=== PATIENT | female | born 1960 | race Caucasian/White ===

== ENCOUNTER → 2016-08-17 | Outpatient (CLI) | payer BC ==
[~2016-08-17] MED LIST: /MOXI40TA OR; ALDA25TA2 OR; ASPI81TA31 OR; LASI20TA OR
[2016-08-17 14:35] LABS: ALBUMIN/GLOBULIN RATIO 0.95 (1.00-1.93); BILIRUBIN,TOTAL 0.4 MG/DL (0.2-1.0); CALCIUM LEVEL 9.3 MG/DL (8.5-10.1); CREATININE FOR GFR 1.02 MG/DL (0.55-1.02); GLOMERULAR FILTRATION RATE 59.3 (>51); MAGNESIUM LEVEL 2.1 MG/DL (1.8-2.4); POTASSIUM SERUM 4.2 MEQ/L (3.5-5.1); TOTAL PROTEIN 8.2 GM/DL (6.4-8.2)
== END ==
LOC: M SMT 09:24
PROVIDERS: ATTEND Physician Assistant
DX: R00.2 Palpitations (principal); Z13.220 Encounter for screening for lipoid disorders

== ENCOUNTER → 2017-02-17 | Outpatient (REF) | payer BC ==
[2017-02-17 15:03] LABS: ANION GAP 7 MEQ/L (8-16); BLOOD UREA NITROGEN 16 MG/DL (7-18); CALCIUM LEVEL 9.2 MG/DL (8.5-10.1); CARBON DIOXIDE LEVEL 29 MEQ/L (21-32); CHLORIDE LEVEL 105 MEQ/L (98-107); CREATININE FOR GFR 0.97 MG/DL (0.55-1.02); GLOMERULAR FILTRATION RATE > 60.0 (>51); GLUCOSE, FASTING 105 MG/DL (70-105); PHOSPHORUS LEVEL 3.6 MG/DL (2.5-4.9); SODIUM LEVEL 141 MEQ/L (136-145)
== END ==
LOC: M LAB REF 13:56
DX: R00.2 Palpitations (principal)
CPT/HCPCS: 80069

== ENCOUNTER → 2018-04-02 | Outpatient (REF) | payer BC | LOC: M LAB REF 11:02 | PROVIDERS: ATTEND Physician Assistant | DX: L02.213 Cutaneous abscess of chest wall (principal) ==

== ENCOUNTER 2018-04-15 11:18 | Emergency (ER) | payer BC ==
[~2018-04-15] VITALS: Ht 160 cm; Wt 73.2 kg
[2018-04-15] MEDS ORDERED: BISO10TA PO (11:28)
--- NOTE | 2018-04-15 14:12 | REP ---
Emergency right breast ultrasound for palpable painful lesion at the 9 o'clock location of the right breast near the sternum, approximate 6.5 cm from the nipple. The palpable painful lump corresponds to a a hypoechoic mass with irregular margins measuring 2.1 by 1.9 x 1.9 cm. With color Doppler assessment there is hyperemia at the margins of this lesion. Impression: The findings are nonspecific and could represent hematoma or abscess. Electronically Signed by Raymundo Card MD 04/15/2018 02:03 P
[2018-04-15 14:20] VITALS: BP 151/68
--- NOTE | 2018-04-16 14:06 | ED PDOC ---
Post-Departure Follow-Up dr sloan faxed formal report of breast us for fu Charlette Padilla MD Apr 16, 2018 14:06
[2018-04-27] MEDS ORDERED: ZYRT10CA PO (13:50)
== END 2018-04-15 14:22 | disposition home or self-care (01) ==
LOC: M ED 11:18
DX: N63.10 Unspecified lump in the right breast, unspecified quadrant (principal); I50.9 Heart failure, unspecified; F41.9 Anxiety disorder, unspecified; Z95.0 Presence of cardiac pacemaker; Z88.0 Allergy status to penicillin; Z88.8 Allergy status to other drugs, medicaments and biological substances; Z79.899 Other long term (current) drug therapy; Z79.82 Long term (current) use of aspirin

== ENCOUNTER → 2018-04-24 | Outpatient (REF) | payer BC ==
[~2018-04-24] MED LIST changes: +BISO10TA PO; +ZYRT10CA PO
== END ==
LOC: M LAB REF 14:32
PROVIDERS: ATTEND Surgery
DX: C44.509 Unspecified malignant neoplasm of skin of other part of trunk (principal)

== ENCOUNTER → 2018-04-28 | Outpatient (CLI) | payer BC ==
--- NOTE | 2018-04-28 16:19 | REP ---
BILATERAL MAMMOGRAM WITH 3D TOMOSYNTHESIS: Bilateral mammogram performed with 3D tomosynthesis. Comparison made with prior study 05/07/2011 as well as other prior studies. [place] lifetime risk of breast cancer 9.6%. Patient recently had ultrasound of the right breast medially at the margin of the sternum showing a mass which was subsequently biopsied by Dr. Mills and represented cancer. This is visualized on the CT of the chest 04/27/2018. Both breasts demonstrate predominantly fatty replacement with mild scattered fibroglandular tissue. Intramammary lymph node is seen in the upper outer quadrant of the left breast. No suspicious mass is seen. The mass seen on the CT of the chest 04/27/2018 could not be included on any of the mammographic images including an exaggerated medial view of the right breast in the CC projections. The visualized breasts bilaterally showed no evidence of a suspicious mass or clustered microcalcifications. IMPRESSION: ACR 2 benign. No suspicious mass or clustered microcalcifications by mammography. A soft tissue mass along the margin of the right sternum is not visualized mammographically. There is no mass or clustered microcalcifications in the visualized portion of either breast. Followup recommended in one year. BIRADS 2: BI-RADS/ACR category 2 mammogram. Benign Findings. This mammogram was interpreted with the aid of an FDA-approved computer-aided detection system. The patient states she/he had a clinical breast exam in 04/2018. The patient letter being requested is M2. Electronically Signed by Raymundo Herrera MD 04/28/2018 07:59 P
== END ==
LOC: M RAD 13:30
PROVIDERS: ATTEND Internal Medicine Medical Oncology
DX: C50.911 Malignant neoplasm of unspecified site of right female breast (principal)
CPT/HCPCS: 77066; G0279

== ENCOUNTER → 2018-05-04 | Outpatient (CLI) | payer BC ==
--- NOTE | 2018-05-08 15:37 | RADONC ---
RADIATION ONCOLOGY CONSULTATION NOTE DATE: 05/04/2018 CHART NUMBER: [id number] DIAGNOSIS: Right breast cancer. STAGE: In progress. ECOG PERFORMANCE STATUS: 0 CONSULTATION NOTE: Ms. 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 HISTORY OF PRESENT ILLNESS: The patient was in her usual state of health. Apparently in 1984, she was diagnosed with a non-Hodgkin's lymphoma for which she received chemotherapy and radiation consisting of 2500 cGy to her mediastinum via anterior and posterior parallel opposed anna. There was noted to possibly be an additional 800 cGy delivered on top of that, bringing the total to 3400 cGy. The patient had done well since that time, but 4 years or so ago noticed a nodular region on the extreme medial aspect of her right mid breast near her sternum. This has very slowly increased in size and on 04/24/2017 the patient underwent a punch biopsy of this area by Shiva Mills MD. Pathology revealed a poorly differentiated adenocarcinoma consistent with a breast primary. The tumor was estrogen receptor positive, progesterone receptor positive and HER2/omi negative. The patient is now presenting to us to see whether or not she would be a candidate for external beam radiation therapy. PAST MEDICAL HISTORY: As noted above, the patient has a history of a non-Hodgkin's lymphoma which was treated with chemotherapy as well as external beam radiation therapy to the mediastinum in 1984. We are unable to obtain records of the treatment performed here but we do have some records of her radiation treatment from [facility]. In addition, the patient has a history of some type of heart problems as well as hypertension. She is using a pacemaker. ALLERGIES: The patient is allergic to PENICILLIN, AMOXICILLIN and PREDNISONE. SOCIAL HISTORY: The patient's social history is negative. She does not abuse alcohol or cigarettes. FAMILY HISTORY: The patient's family history is noncontributory. She has no family history of breast cancer or other malignancies. REVIEW OF SYSTEMS: The patient's review of systems is positive for some dental problems and gingivitis as well as hives when stressed. It is otherwise noncontributory. Denies nausea, vomiting, fevers, chills, night sweats, diplopia, headaches, anxiety or depression, anorexia, weight loss, visual disturbances, chest pain, urinary or bowel difficulties, bone pain, or neurological problems. PHYSICAL EXAMINATION: The patient is a well-developed, well-nourished, 58-year-old white female, in no acute distress. HEENT exam is normocephalic, atraumatic. Extraocular movements are intact. There is no palpable cervical, supraclavicular, infraclavicular, axillary, or inguinal lymphadenopathy present. Lungs are clear to auscultation and percussion. Heart has a regular rate and rhythm. Abdomen is benign with no hepatosplenomegaly, masses, or tenderness. Breast examination reveals a left breast which is free of masses or discharge. There is approximately a 1.5 cm nodular area present in the extreme medial aspect of the right mid breast. Skeletal examination reveals no tenderness to pressure or percussion of the bony skeleton. Extremities reveal no clubbing, cyanosis, or edema. Neurologic exam is grossly intact, as is the remainder of the physical examination. ASSESSMENT: I had a very lengthy discussion with this patient with regards to the overall treatment. We are somewhat limited to the amount of radiation we can safely deliver to this region. Therefore, I do not believe definitive radiation therapy should be the first align of defense here. I did speak with Dr. Shiva Mills our surgeon, and he agrees. He is scheduling this patient to be seen and have a surgical excision in order to obtain a negative margin if possible. Having reviewed the patient's previous radiation records, although limited, it appears that she should be able to tolerate some further treatments, perhaps to a post operative dose of 4500 cGy. This would bring the skin towards slightly over tolerance limits, but I think we can design a field that may be acceptable. I have placed the patient on our list for discussion at our multidisciplinary tumor conference in 2 weeks and the patient will be returning to me following that for further discussion. We have set up an appointment for her to see Dr. Mills to discuss surgery and he will be scheduling that. In addition, the patient will be seeing her medical oncologist again now that we have a diagnosis to discuss systemic options as indicated. Once she is seen by Dr. Mills and had surgery as well as by her medical oncologist and discussed at the tumor conference, further recommendations may be made. Thank you for allowing us to participate in the care of this very pleasant woman. If I could be of any further assistance or provide you with any information, please free to contact me at anytime. As always, warm regards nausea. cc: Shiva Mills Jr, MD [place], MD
== END ==
LOC: M ONCR 10:26
PROVIDERS: ATTEND Radiology Radiation Oncology
DX: C50.911 Malignant neoplasm of unspecified site of right female breast (principal); C41.3 Malignant neoplasm of ribs, sternum and clavicle; Z88.0 Allergy status to penicillin; Z88.8 Allergy status to other drugs, medicaments and biological substances

== ENCOUNTER → 2018-07-07 | Outpatient (CLI) | payer BC ==
[~2018-07-07] MED LIST changes: -/MOXI40TA OR; +AVEL1TAB2 OR; -BISO10TA PO; +BISO10TA13 PO
--- NOTE | 2018-07-07 11:25 | REP ---
FOCUSED RIGHT BREAST SONOGRAPHY: HISTORY: Right breast mass, recheck after neoadjuvant chemotherapy, two cycles. Comparison breast sonography is from April 15, 2018. Comparison CT study of the chest April 27, 2018 and mammography April 28, 2018. SONOGRAPHIC FINDINGS: Scanning in the area of the palpable mass in the medial edge of the breast in the parasternal region is performed. A hypoechoic lesion is again seen with low resistance flow in a hypervascular pattern. This measures 2.7 x 2.4 x 0.9 cm. By ultrasound, the lesion appears to extend to the chest wall. Previously-reported ultrasound dimensions were 2.1 x 1.9 [address] dated 04/27/2018 by my measurements, the lesion measured 2.6 x 2.4 x 3.3 cm. The lesion does appear to be shorter in the dimension perpendicular to the skin. IMPRESSION: Known medial, parasternal breast malignant lesion appears decreased in diameter in the dimension perpendicular to the skin. Otherwise similar dimensions compared to the prior sonogram. The lesion is hypervascular and appears to extend to the underlying chest wall. BIRADS 6: BI-RADS/ACR category 6 mammogram. Known Biopsy Proven Malignancy. Electronically Signed by Malcom Suh MD 07/07/2018 03:57 P
== END ==
LOC: M RAD 09:02
PROVIDERS: ATTEND Internal Medicine Hematology & Oncology
DX: C50.211 Malignant neoplasm of upper-inner quadrant of right female breast (principal)

== ENCOUNTER → 2018-07-17 | Outpatient (CLI) | payer BC ==
[2018-07-17 11:11] LABS: BASO # 0.1 10^3/uL (0.0-0.2); BASO % 1.3 % (0.0-1.0); EOS # 0.2 10^3/uL (0.0-0.50); EOS % 3.1 % (0.0-3.0); HEMATOCRIT 27.7 % (36.0-47.0); HEMOGLOBIN 8.6 g/dl (12.0-15.5); LYMPH # 1.2 10^3/uL (1.5-4.5); LYMPH % 19.3 % (24.0-44.0); MEAN CORPUSCULAR HEMOGLOBIN 30.4 pg (27.0-33.0); MEAN CORPUSCULAR VOLUME 97.9 fl (80.0-96.0); MONO # 0.6 10^3/uL (0.0-0.8); MONO % 10.1 % (0.0-5.0); NEUTROPHILS % 65.5 % (36.0-66.0); PLATELET COUNT, AUTOMATED 369 10^3/uL (150-450); RED BLOOD COUNT 2.83 10^6/uL (4.00-5.40); WHITE BLOOD COUNT 6.1 10^3/uL (4.0-10.0)
[2018-07-17 11:20] LABS: ALBUMIN 2.9 GM/DL (3.2-5.2); BILIRUBIN,TOTAL 0.2 MG/DL (0.2-1.0); CALCIUM LEVEL 8.2 MG/DL (8.8-10.2); CREATININE FOR GFR 1.02 MG/DL (0.55-1.30); GLOMERULAR FILTRATION RATE 58.8 (>45); POTASSIUM SERUM 4.1 MEQ/L (3.5-5.1); TOTAL PROTEIN 7.2 GM/DL (6.4-8.2)
== END ==
LOC: M SMT 08:57
PROVIDERS: ATTEND Internal Medicine Hematology & Oncology
DX: C50.211 Malignant neoplasm of upper-inner quadrant of right female breast (principal)

== ENCOUNTER → 2018-08-07 | Outpatient (CLI) | payer BC ==
[2018-08-07 09:50] LABS: BASO # 0.1 10^3/uL (0.0-0.2); BASO % 1.7 % (0.0-1.0); EOS # 0.3 10^3/uL (0.0-0.50); EOS % 4.4 % (0.0-3.0); HEMATOCRIT 24.8 % (36.0-47.0); HEMOGLOBIN 7.7 g/dl (12.0-15.5); LYMPH # 1.1 10^3/uL (1.5-4.5); MEAN CORPUSCULAR HEMOGLOBIN 30.1 pg (27.0-33.0); MEAN CORPUSCULAR VOLUME 96.9 fl (80.0-96.0); MONO # 0.7 10^3/uL (0.0-0.8); MONO % 11.2 % (0.0-5.0); NEUTROPHILS # 3.8 10^3/uL (1.8-7.7); PLATELET COUNT, AUTOMATED 322 10^3/uL (150-450); RED BLOOD COUNT 2.56 10^6/uL (4.00-5.40); WHITE BLOOD COUNT 5.9 10^3/uL (4.0-10.0)
[2018-08-07 10:03] LABS: ALBUMIN 2.8 GM/DL (3.2-5.2); ALT/SGPT 12 U/L (12-78); BILIRUBIN,TOTAL 0.2 MG/DL (0.2-1.0); BLOOD UREA NITROGEN 15 MG/DL (7-18); CALCIUM LEVEL 8.6 MG/DL (8.8-10.2); CARBON DIOXIDE LEVEL 27 MEQ/L (21-32); CHLORIDE LEVEL 112 MEQ/L (98-107); CREATININE FOR GFR 0.92 MG/DL (0.55-1.30); GLOMERULAR FILTRATION RATE > 60.0 (>45); GLUCOSE, FASTING 90 MG/DL (70-100); POTASSIUM SERUM 3.9 MEQ/L (3.5-5.1); SODIUM LEVEL 143 MEQ/L (136-145); TOTAL PROTEIN 6.7 GM/DL (6.4-8.2)
== END ==
LOC: M SMT 07:48
PROVIDERS: ATTEND Internal Medicine Hematology & Oncology
DX: C50.211 Malignant neoplasm of upper-inner quadrant of right female breast (principal)

== ENCOUNTER → 2018-08-21 | Outpatient (CLI) | payer BC ==
--- NOTE | 2018-08-21 10:54 | REP ---
ULTRASOUND RIGHT BREAST: Real-time sonographic evaluation of the right breast performed and correlated with the prior study of 07/07/2018. Once again at the 3 o'clock position there is a hypoechoic lesion which measures 1.9 x 2.4 x 1.4 cm, total volume 3.3 mL. Prior study demonstrates measurements and resultant volume of 3.1 mL. The size of the lesion is therefore essentially unchanged. Lesion appears to extend to the skin and involve a greater surface area of the skin compared to the prior study. IMPRESSION: ACR 6 known malignancy right breast. Total volume of the right breast lesion is essentially stable. There does appear to be more skin surface area involved compared to the prior study of 07/07/2018, but only to a slightly greater extent than on that prior study. Electronically Signed by Raymundo Herrera MD 08/21/2018 01:13 P
== END ==
LOC: M RAD 09:32
PROVIDERS: ATTEND Nurse Practitioner Family
DX: C50.211 Malignant neoplasm of upper-inner quadrant of right female breast (principal)

== ENCOUNTER → 2018-08-21 | Outpatient (CLI) | payer BC ==
[2018-08-21 13:33] LABS: BASO # 0.1 10^3/uL (0.0-0.2); BASO % 0.8 % (0.0-1.0); EOS # 0.7 10^3/uL (0.0-0.50); EOS % 7.1 % (0.0-3.0); HEMATOCRIT 29.6 % (36.0-47.0); HEMOGLOBIN 9.3 g/dl (12.0-15.5); LYMPH # 1.3 10^3/uL (1.5-4.5); LYMPH % 14.3 % (24.0-44.0); MEAN CORPUSCULAR HEMOGLOBIN 30.7 pg (27.0-33.0); MEAN CORPUSCULAR HGB CONC 31.4 g/dl (32.0-36.5); MEAN CORPUSCULAR VOLUME 97.7 fl (80.0-96.0); MONO # 0.5 10^3/uL (0.0-0.8); MONO % 5.6 % (0.0-5.0); NEUTROPHILS # 6.5 10^3/uL (1.8-7.7); NEUTROPHILS % 71.8 % (36.0-66.0); PLATELET COUNT, AUTOMATED 264 10^3/uL (150-450); RED BLOOD COUNT 3.03 10^6/uL (4.00-5.40); WHITE BLOOD COUNT 9.1 10^3/uL (4.0-10.0)
[2018-08-21 13:38] LABS: ALBUMIN 3.4 GM/DL (3.2-5.2); ALT/SGPT 18 U/L (12-78); BILIRUBIN,TOTAL 0.4 MG/DL (0.2-1.0); BLOOD UREA NITROGEN 13 MG/DL (7-18); CALCIUM LEVEL 8.8 MG/DL (8.8-10.2); CARBON DIOXIDE LEVEL 24 MEQ/L (21-32); CHLORIDE LEVEL 109 MEQ/L (98-107); CREATININE FOR GFR 0.85 MG/DL (0.55-1.30); GLOMERULAR FILTRATION RATE > 60.0 (>45); GLUCOSE, FASTING 120 MG/DL (70-100); POTASSIUM SERUM 3.7 MEQ/L (3.5-5.1); SODIUM LEVEL 144 MEQ/L (136-145); TOTAL PROTEIN 7.2 GM/DL (6.4-8.2)
== END ==
LOC: M SMT 11:21
PROVIDERS: ATTEND Internal Medicine Hematology & Oncology
DX: C50.211 Malignant neoplasm of upper-inner quadrant of right female breast (principal)

== ENCOUNTER → 2018-09-07 | Outpatient (CLI) | payer BC ==
--- NOTE | 2018-09-07 10:50 | REP ---
Clinical: Preoperative assessment. Technique: PA and lateral. Comparison: 07/30/2012. Findings: Mediastinum and cardiac silhouette are stable. Dual lead pacemaker again noted. Lung anna demonstrate chronic stable interstitial changes. No acute consolidation, effusion, or pneumothorax identified. Skeletal structures are intact. Osteopenia and degenerative changes noted. Airway is patent and midline. Impression: Chronic stable changes. No acute cardiopulmonary process appreciated. Electronically Signed by Xavier Mittal MD 09/07/2018 10:42 A
[2018-09-07 13:41] LABS: BASO # 0.1 10^3/uL (0.0-0.2); BASO % 0.9 % (0.0-1.0); EOS # 0.3 10^3/uL (0.0-0.50); EOS % 5.8 % (0.0-3.0); HEMATOCRIT 31.8 % (36.0-47.0); HEMOGLOBIN 10.1 g/dl (12.0-15.5); LYMPH # 1.3 10^3/uL (1.5-4.5); LYMPH % 23.1 % (24.0-44.0); MEAN CORPUSCULAR HEMOGLOBIN 30.6 pg (27.0-33.0); MEAN CORPUSCULAR HGB CONC 31.8 g/dl (32.0-36.5); MEAN CORPUSCULAR VOLUME 96.4 fl (80.0-96.0); MONO # 0.4 10^3/uL (0.0-0.8); MONO % 6.9 % (0.0-5.0); NEUTROPHILS # 3.5 10^3/uL (1.8-7.7); NEUTROPHILS % 62.9 % (36.0-66.0); PLATELET COUNT, AUTOMATED 295 10^3/uL (150-450); WHITE BLOOD COUNT 5.5 10^3/uL (4.0-10.0)
[2018-09-07 13:53] LABS: INR 1.09; PROTHROMBIN TIME 13.8 SECONDS (11.8-14.0)
[2018-09-07 13:54] LABS: PARTIAL THROMBOPLASTIN TIME 29.2 SECONDS (25.0-38.4)
[2018-09-07 14:18] LABS: CHOLESTEROL RISK RATIO 4.039 (<5)
== END ==
LOC: M SMT 10:07
PROVIDERS: ATTEND Physician Assistant
DX: Z01.810 Encounter for preprocedural cardiovascular examination (principal)

== ENCOUNTER → 2018-12-05 | Outpatient (CLI) | payer BC ==
--- NOTE | 2018-12-07 09:23 | RADONC ---
RADIATION ONCOLOGY RECONSULTATION DATE: 12/05/2018 CHART NUMBER: [id number] DIAGNOSIS: Right breast cancer. STAGE: IIA, T2N0M0, ER positive, AZ positive, HER2 negative, grade III. ECOG PERFORMANCE STATUS: 0 RECONSULTATION NOTE: Ms. 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 Since her last visit, the patient has undergone an initial resection of this lesion on 10/02/2018. Pathology revealed a 1.6 cm poorly differentiated invasive ductal carcinoma. There was no angiolymphatic invasion noted. The margin of resection was positive for malignancy. The tumor was estrogen receptor and progesterone receptor positive and HER2 negative. On 11/01/2018 the patient underwent reexcision once again to [facility] and once again pathology found a residual invasive ductal carcinoma measuring 5 mm in largest dimension. Once again, the tumor was present at the inked new margin of resection. The patient has healed and has spoken with her surgeon, who is quite concerned of residual disease and the chance of local recurrence. She is now being referred back to me, having refused chemotherapy or any systemic therapy, Oncotype testing, or further breast surgery, for consideration of postoperative radiation therapy in an attempt to achieve local control. As of note in my previous consultation, the patient has had significant radiation therapy to the mediastinum in the past. Apparently an 1984 she was diagnosed with a non-Hodgkin's lymphoma for which she received chemotherapy and radiation consisting of 250 cGy to her mediastinum via anterior and posterior parallel opposed anna. There was noted to possibly be an additional 800 cGy delivered on top of that, bringing the total dose to 3400 cGy. As noted previously, the patient had done well but approximately 4 years ago noticed a nodular lesion on the extreme medial aspect of her right breast near the sternum. She reported that it increased slowly in size until 04/24/2017 when she underwent a punch biopsy by Dr. Mills who initially made the diagnosis of the poorly differentiated adenocarcinoma consistent with breast primary. PAST MEDICAL HISTORY: The patient's past medical history is positive for non-Hodgkin's lymphoma, for which she was treated with chemotherapy as well as external beam radiation therapy to the mediastinum in 1984. In addition, she reports that she has some kind of pulmonary hypertension and heart problems. She tells me that Dr. Rajput had told her she had anywhere between 1-2 years left to live although that was now 7 years ago. ALLERGIES: The patient is allergic to: 1. PENICILLIN. 2. AMOXICILLIN. 3. PREDNISONE. SOCIAL HISTORY: The patient does not smoke cigarettes nor abuse alcohol. FAMILY HISTORY: The patient's family history is noncontributory. She has no history of breast cancer or other malignancies. REVIEW OF SYSTEMS: The patient's review of systems is noncontributory. She denies nausea, vomiting, fevers, chills, night sweats, diplopia, headaches, anxiety or depression, anorexia, weight loss, visual disturbances, chest pain, urinary or bowel difficulties, bone pain, or neurological problems. PHYSICAL EXAMINATION The patient is a well-developed, well-nourished white female in no acute distress. HEENT exam is normocephalic, atraumatic. Extraocular movements are intact. There is no palpable cervical, supraclavicular, infraclavicular, axillary, or inguinal lymphadenopathy present. Lungs are clear to auscultation and percussion. Heart has a regular rate and rhythm. Abdomen is benign with no hepatosplenomegaly, masses, or tenderness. Breast examination: The patient's left breast is free of masses or discharge. Her right medial aspect through to over her sternum has a healing surgical scar present with visible suture present. Skeletal examination reveals no tenderness to pressure or percussion of the bony skeleton. Extremities reveal no clubbing, cyanosis, or edema. Neurologic exam is grossly intact, as is the remainder of the physical examination. ASSESSMENT: Once again, I had a lengthy discussion with this patient. As I had in the past, I let the patient know that at this time we have a positive margin and that this means there is a high likelihood of residual disease in the surgical field. If we do not deliver postoperative radiation therapy at least to a limited field, the likelihood of recurrence is exceedingly high. The patient reports that her surgeon told her that he could not resect any further as there was a limited amount of residual tissue. Radiation therapy therefore is the treatment modality of choice. I made clear to the patient that at this time we are dealing with potential microscopic disease and therefore the dose of radiation can be somewhat limited. In light of the fact that this region has received radiation in the past, I let her know that I would prefer to treat it now rather than wait for recurrence. Once there is clinically detectable disease the amount of radiation required would be significantly increased and indeed will lead us to a dose beyond normal tolerances for the skin and bone. The patient at this time tells me that she is past her life expectancy because of her heart issues at this point anyway, and she is not sure she wants to do anything. I spent a significant time, perhaps an hour with the patient and her family, once again discussing these issues in detail. On her previous evaluation, I had reviewed all of her radiation records and I concluded that she should be able to tolerate a dose of 4500 cGy to a limited area. Yes it would be surpassing tolerance limits for a small region, but in light of the high likelihood of recurrence, I think it reasonable. 4500 cGy should be tolerated. I let her know that if there is a clinical recurrence the doses of radiation needed would 6500 to 7000 cGy depending on the tumor volume. This would increase the likelihood of necrosis of the skin and osteonecrosis significantly. Overall in conclusion, I have recommended radiation postoperatively to this area in attempt to achieve local control. The patient has reported that she wishes to think about this and that she will call us back if she wants treatment. I then let her know that if she chooses not to go on radiation she needs to be followed closely. At first sign of any recurrence she should be willing to reevaluate her decision. I have therefore tentatively set her up for a followup visit in our office in three months' time. She will continue her followup with her other physicians as well. I have given the patient my cell phone number as well as office number and asked her to contact me if I could be of any assistance or answer any questions. She has agreed to contact me if she decides she wishes to undergo treatment. After a lengthy discussion, I have concluded believing that she understood all the pluses and minuses of radiation and the risks of delaying, as well as the risks of treatment. Thank you for allowing us to participate in the care of this very pleasant woman. I will keep her chart active and we can initiate treatment at anytime should she so desire. MTDD
== END ==
LOC: M ONCR 08:45
PROVIDERS: ATTEND Radiology Radiation Oncology
DX: C50.911 Malignant neoplasm of unspecified site of right female breast (principal); Z85.79 Personal history of other malignant neoplasms of lymphoid, hematopoietic and related tissues

== ENCOUNTER 2019-01-03 13:41 | Outpatient (RCR) | payer BC ==
--- NOTE | 2018-12-19 14:47 | RADONC ---
RADIATION ONCOLOGY SIMULATION NOTE DATE: 12/19/2018 CHART NUMBER: [id number] Ms. Massey was taken to the linear accelerator today for clinical setup of her electron beam breast field. Setup was accomplished without difficulty or discomfort. Radiation treatment planning is underway and radiation treatments will begin subsequently. An immobilization device was created and be used throughout the course of treatment. It was created without difficulty or discomfort. I was physically present throughout the course of clinical setup simulation.
--- NOTE | 2018-12-26 11:19 | RADONC ---
RADIATION ONCOLOGY PROGRESS NOTE DATE: 12/25/2018 CHART NUMBER: [id number] PROGRESS NOTE: Ms. Massey underwent her first fraction of radiation today to her right breast/sternum for a dose of 180 cGy. Radiation was tolerated without difficulty or discomfort. REVIEW OF SYSTEMS: The patient's review of systems is noncontributory. Denies nausea, vomiting, fevers, chills, night sweats, diplopia, headaches, anxiety or depression, anorexia, weight loss, visual disturbances, chest pain, urinary or bowel difficulties, bone pain, or neurological problems. PHYSICAL EXAMINATION: The patient's skin clearly showed no evidence of radiation changes. This was her first fraction. The remainder of physical exam remains unchanged as well.
--- NOTE | 2019-01-03 08:09 | RADONC ---
RADIATION ONCOLOGY PROGRESS NOTE DATE: 01/01/2019 CHART #: [id number] Ms. Massey is presently at a dose of 1080 cGy to her right breast/sternal area and is tolerating treatments quite well at this point with no complaints related to her radiation therapy. She has no breast or bone pain. REVIEW OF SYSTEMS: The patient's review of systems is noncontributory. Denies nausea, vomiting, fevers, chills, night sweats, diplopia, headaches, anxiety or depression, anorexia, weight loss, visual disturbances, chest pain, urinary or bowel difficulties, bone pain, or neurological problems. PHYSICAL EXAMINATION: The patient's skin is in good condition with no evidence of radiation change present. There is no moist or dry desquamation. The remainder of her physical exam remains unchanged. Ms. Massey is tolerating treatments quite well and radiation will continue as scheduled.
== END 2019-01-06 ==
LOC: M ONCR 13:41
PROVIDERS: ATTEND Radiology Radiation Oncology
DX: C50.811 Malignant neoplasm of overlapping sites of right female breast (principal)

== ENCOUNTER 2019-02-01 13:49 | Outpatient (RCR) | payer BC ==
--- NOTE | 2019-01-09 15:36 | RADONC ---
RADIATION ONCOLOGY TREATMENT NOTE DATE OF SERVICE: 01/09/2019 CHART NUMBER: [id number] Ms. Massey carries the diagnosis of right breast sternal area cancer. She so far has received ten treatment doses of 1800 cGy and she did not have any problem with the treatment and she has no complaints. There is no significant skin changes noted. Treatment will continue as planned. MTDD
--- NOTE | 2019-01-15 14:45 | RADONC ---
RADIATION ONCOLOGY PROGRESS NOTE DATE: 01/15/2019 CHART NUMBER: [id number] PROGRESS NOTE: Ms. Massey is presently at a dose of 2520 cGy to her right breast and is tolerating treatments quite well at this point with no complaints related to her radiation therapy. She is having no breast or bone pain. REVIEW OF SYSTEMS: The patient's review of systems is noncontributory. Denies nausea, vomiting, fevers, chills, night sweats, diplopia, headaches, anxiety or depression, anorexia, weight loss, visual disturbances, chest pain, urinary or bowel difficulties, bone pain, or neurological problems. PHYSICAL EXAMINATION: The patient's skin is in good condition with no evidence of moist or dry desquamation. The remainder of her physical exam remains unchanged. Ms. Massey is tolerating treatments quite well and radiation will continue as scheduled.
--- NOTE | 2019-01-24 07:54 | RADONC ---
RADIATION ONCOLOGY PROGRESS NOTE DATE: 01/22/2019 CHART NUMBER: [id number] Ms. Massey is presently at a dose of 3420 cGy to her right breast and is tolerating treatments quite well at this point with no complaints related to her radiation therapy. She is having no skin or bone pain. REVIEW OF SYSTEMS: The patient's review of systems is noncontributory. She denies nausea, vomiting, fevers, chills, night sweats, diplopia, headaches, anxiety or depression, anorexia, weight loss, visual disturbances, chest pain, urinary or bowel difficulties, bone pain, or neurological problems. PHYSICAL EXAMINATION: The patient's skin is in good condition with no evidence of moist or dry desquamation. The remainder of her physical exam remains unchanged. Ms. Massey is tolerating treatments quite well and radiation will continue as scheduled.
--- NOTE | 2019-02-02 10:08 | RADONC ---
RADIATION ONCOLOGY PROGRESS NOTE DATE: 01/29/2019 CHART #: [id number] Mrs. Massey with a diagnosis of right breast cancer is currently receiving local regional radiotherapy and she has achieved a dose thus far of 4320 cGy of an anticipated 4500 cGy. She is tolerating her radiotherapy quite well, denying any nausea, vomiting, coughing, sputum production or hemoptysis. Her energy level is such that she is able to maintain most of her day-to-day activities without any alteration of her lifestyle. Skin irritation is denied. EXAMINATION FINDINGS: The skin within the irradiated volume shows neither erythema nor desquamation. There is no palpable peripheral lymphadenopathy noted in the cervical, supraclavicular, axillary or inguinal lymph node chains. The remainder of the physical examination is unchanged. IMPRESSION: Tolerating therapy quite well with no significant untoward side effects. PLAN: She only has one more treatment to complete her entire prescribed dose of radiotherapy and a radiation therapy treatment summary will follow. [facility]
--- NOTE | 2019-02-05 08:44 | RADONC ---
RADIATION ONCOLOGY END OF TREATMENT SUMMARY DATE: 02/02/2019 CHART NUMBER: [id number] DIAGNOSIS: Right breast cancer, stage IIA, T2N0M0, ER positive, MO positive, HER2/omi negative, grade 3. ECOG PERFORMANCE STATUS: 0. PLAN OF RADIOTHERAPY: Local regional radiotherapy to prevent a local regional recurrence within the breast area. DATE RADIOTHERAPY STARTED: Tuesday, December 25, 2018. DATE RADIOTHERAPY COMPLETED: February 01, 2019. DOSE: The patient received a total of 4500 cGy administered in 25 fractions over 39 elapsed days utilizing a 6 MV photon beam with a dose assessed at the 90% isodose line. She was treated with 3-D conformal radiotherapy technique and prior to treatment delivery localization was accomplished upon our CT simulator where upon treatment portals were defined by the use of multiple leaf collimators. She had had previous radiotherapy to the mediastinum secondary to a previous diagnosis of a non-Hodgkin's lymphoma. She was advised prior to the initiation of radiotherapy of the risks of reirradiation to the mediastinum, but apparently the breast tumor had recurred with positive margins and she was at in extreme high risk for local regional recurrence. Tolerance in general treatments were relatively well tolerated with no significant untoward side effects. DISPOSITION: Return to clinic in approximately 1 month for post radiotherapy followup visit and she was advised to return to her referring physicians as per their directions and instructions. Thank you for allowing us the opportunity of participation in the management of this very zora patient. cc: Shiva Mills Jr, MD
== END 2019-02-06 ==
LOC: M ONCR 13:49
PROVIDERS: ATTEND Radiology Radiation Oncology
DX: C50.811 Malignant neoplasm of overlapping sites of right female breast (principal)

== ENCOUNTER → 2019-02-28 | Outpatient (CLI) | payer BC ==
--- NOTE | 2019-03-01 07:37 | RADONC ---
RADIATION ONCOLOGY FOLLOWUP NOTE DATE: 02/28/2019 CHART #: [id number] DIAGNOSIS: Right breast cancer. STAGE: II A, T2N0M0, ER positive, WI positive, HER2/omi negative, grade III. ECOG PERFORMANCE STATUS: 0. FOLLOWUP NOTE: Ms. 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 The patient presents today reporting that she is doing quite well with no complaints at this time related to her radiation therapy or disease. She is having no chest wall pain, bone pain or other problems. REVIEW OF SYSTEMS: The patient's review of systems is noncontributory. Denies nausea, vomiting, fevers, chills, night sweats, diplopia, headaches, anxiety or depression, anorexia, weight loss, visual disturbances, chest pain, urinary or bowel difficulties, bone pain, or neurological problems. PHYSICAL EXAMINATION: The patient is a well-developed, well-nourished female in no acute distress. HEENT exam is normocephalic, atraumatic. Extraocular movements are intact. There is no palpable cervical, supraclavicular, infraclavicular, axillary, or inguinal lymphadenopathy present. Lungs are clear to auscultation and percussion. Heart has a regular rate and rhythm. Abdomen is benign with no hepatosplenomegaly, masses, or tenderness. Breast examination reveals the patient's left breast is free of masses or discharge. Her right breast is also free of masses or discharge. Her radiation site shows no evidence of nodularity or recurrent disease. Skeletal examination reveals no tenderness to pressure or percussion of the bony skeleton. Extremities reveal no clubbing, cyanosis, or edema. Neurologic exam is grossly intact, as is the remainder of the physical examination. ASSESSMENT: The patient is clinically TONY at this time. I have scheduled the patient to see me again in 1 month for further followup. She will also continue to be followed by her other physicians as well. cc: MD Shiva Espinosa Jr, MD Ines Reyes DO
== END ==
LOC: M ONCR 08:44
PROVIDERS: ATTEND Radiology Radiation Oncology
DX: C50.811 Malignant neoplasm of overlapping sites of right female breast (principal)

== ENCOUNTER → 2019-05-16 | Outpatient (CLI) | payer BC ==
--- NOTE | 2019-05-16 09:50 | RADONC ---
This is a telemedicine visit. The patient was informed of the risks including security breech, technological failure, inability to perform a comprehensive physical exam which could delay or prevent an accurate diagnosis, and potential complications from treatment decisions rendered over a telemedicine platform. The patient understands and consented to the use of telehealth services. Phone only. RADIATION ONCOLOGY FOLLOWUP NOTE DATE OF SERVICE: 05/16/2019 CHART NUMBER: [id number]. DIAGNOSIS: Right breast cancer. Stage: IIA, T2N0M0, ER positive, MO positive, HER2 negative, grade 3. ECOG PERFORMANCE STATUS: 0. FOLLOWUP NOTE: Ms. Massey is a very pleasant 59-year-old white female with the diagnosis of what appears to be a stage IIA, T2N0M0, ER positive, MO positive, HER2 negative poorly differentiated infiltrating ductal carcinoma of the right breast who is presenting to me today for routine followup visit 3 months postcompletion of external beam radiation therapy. The patient presents today by telephone, reporting that she is doing quite well with no complaints at this time related to her radiation therapy or disease. She has had no breast or bone pain. REVIEW OF SYSTEMS: The patient's review of systems is noncontributory. She denies nausea, vomiting, fevers, chills, night sweats, diplopia, headaches, anxiety or depression, anorexia, weight loss, visual disturbances, chest pain, urinary or bowel difficulties, bone pain, or neurological problems. PHYSICAL EXAMINATION: Physical examination was deferred as per COVID-19 precautions. This was a telephone visit. ASSESSMENT: The patient is doing clinically quite well at this point. I have set her up for a followup visit in this office in 6 months' time. She will be seeing my replacement, Dr. Oleary. She will also continue her close followup with her other physicians, Dr. Ines Reyes DO, Shiva Mills Jr., MD, and Wm Carrington MD. I will be available to her at least for the next several weeks if I can be of any assistance. She has my cell phone number and office number.
== END ==
LOC: M ONCR 09:16
PROVIDERS: ATTEND Radiology Radiation Oncology
DX: C50.811 Malignant neoplasm of overlapping sites of right female breast (principal); Z92.3 Personal history of irradiation

== ENCOUNTER → 2019-12-03 | Outpatient (CLI) | payer BC ==
[2019-12-03 14:11] LABS: BASO # 0.1 10^3/uL (0.0-0.2); BASO % 0.8 % (0.0-1.0); EOS # 0.2 10^3/uL (0.0-0.5); EOS % 3.3 % (0.0-3.0); HEMATOCRIT 35.1 % (36.0-47.0); HEMOGLOBIN 11.2 g/dl (12.0-15.5); LYMPH # 1.3 10^3/uL (1.5-5.0); LYMPH % 20.9 % (24.0-44.0); MEAN CORPUSCULAR HEMOGLOBIN 29.9 pg (27.0-33.0); MEAN CORPUSCULAR HGB CONC 31.9 g/dl (32.0-36.5); MEAN CORPUSCULAR VOLUME 93.9 fl (80.0-96.0); MONO # 0.4 10^3/uL (0.0-0.8); MONO % 5.9 % (0.0-5.0); NEUTROPHILS # 4.2 10^3/uL (1.5-8.5); NEUTROPHILS % 68.6 % (36.0-66.0); PLATELET COUNT, AUTOMATED 300 10^3/uL (150-450); RED BLOOD COUNT 3.74 10^6/uL (4.00-5.40); WHITE BLOOD COUNT 6.1 10^3/uL (4.0-10.0)
[2019-12-03 14:34] LABS: ALBUMIN 3.6 GM/DL (3.2-5.2); ALT/SGPT 19 U/L (12-78); BILIRUBIN,TOTAL 0.4 MG/DL (0.2-1.0); BLOOD UREA NITROGEN 14 MG/DL (7-18); CALCIUM LEVEL 9.3 MG/DL (8.8-10.2); CARBON DIOXIDE LEVEL 28 MEQ/L (21-32); CHLORIDE LEVEL 106 MEQ/L (98-107); CHOLESTEROL LEVEL 219 MG/DL (<200); CHOLESTEROL RISK RATIO 4.562 (<5); CREATININE FOR GFR 0.96 MG/DL (0.55-1.30); FREE T4 1.07 NG/DL (0.76-1.46); GLOMERULAR FILTRATION RATE > 60.0 (>45); GLUCOSE, FASTING 113 MG/DL (70-100); HDL CHOLESTEROL 48 MG/DL (>40); LDL CHOLESTEROL 151 MG/DL (<100); NON-HDL-C 171 MG/DL; POTASSIUM SERUM 3.9 MEQ/L (3.5-5.1); SODIUM LEVEL 138 MEQ/L (136-145); TOTAL 25(OH) VITAMIN D 20.3 NG/ML (30.0-100.0); TOTAL PROTEIN 7.9 GM/DL (6.4-8.2); TRIGLYCERIDES LEVEL 98 MG/DL (<150)
[2019-12-03 16:28] LABS: FERRITIN 86 NG/ML (8-252); IRON (FE) 61 UG/DL (50-170); PERCENT SATURATION 18.5 % (13.2-45.0); TOTAL IRON BINDING CAPACITY 330 UG/DL (250-450)
[2019-12-03 16:35] LABS: FOLATE 10.8 NG/ML; VITAMIN B12 LEVEL 235 PG/ML
== END ==
LOC: M PLALAB 12:07
PROVIDERS: ATTEND Family Medicine
DX: Z13.29 Encounter for screening for other suspected endocrine disorder (principal); Z13.0 Encounter for screening for diseases of the blood and blood-forming organs and certain disorders involving the immune mechanism; Z85.3 Personal history of malignant neoplasm of breast; D64.9 Anemia, unspecified; Z92.3 Personal history of irradiation

== ENCOUNTER → 2020-11-06 | Outpatient (CLI) | payer BC ==
[2020-11-06 15:37] LABS: HEMATOCRIT 35.3 % (36.0-47.0); HEMOGLOBIN 11.5 g/dl (12.0-15.5); MEAN CORPUSCULAR HEMOGLOBIN 29.6 pg (27.0-33.0); MEAN CORPUSCULAR HGB CONC 32.6 g/dl (32.0-36.5); PLATELET COUNT, AUTOMATED 311 10^3/uL (150-450); RED BLOOD COUNT 3.88 10^6/uL (4.00-5.40); WHITE BLOOD COUNT 7.3 10^3/uL (4.0-10.0)
[2020-11-06 16:11] LABS: ALBUMIN 3.3 GM/DL (3.2-5.2); ALT/SGPT 16 U/L (12-78); BILIRUBIN,TOTAL 0.3 MG/DL (0.2-1.0); BLOOD UREA NITROGEN 13 MG/DL (7-18); CALCIUM LEVEL 9.4 MG/DL (8.8-10.2); CARBON DIOXIDE LEVEL 28 MEQ/L (21-32); CHLORIDE LEVEL 106 MEQ/L (98-107); CHOLESTEROL LEVEL 227 MG/DL (<200); CHOLESTEROL RISK RATIO 4.283 (<5); CREATININE FOR GFR 0.95 MG/DL (0.55-1.30); GLOMERULAR FILTRATION RATE > 60.0 (>45); GLUCOSE, FASTING 102 MG/DL (70-100); HDL CHOLESTEROL 53 MG/DL (>40); LDL CHOLESTEROL 158 MG/DL (<100); NON-HDL-C 174 MG/DL; POTASSIUM SERUM 3.9 MEQ/L (3.5-5.1); SODIUM LEVEL 142 MEQ/L (136-145); TOTAL PROTEIN 8.1 GM/DL (6.4-8.2); TRIGLYCERIDES LEVEL 79 MG/DL (<150)
== END ==
LOC: M PLALAB 12:56
PROVIDERS: ATTEND Physician Assistant
DX: I44.2 Atrioventricular block, complete (principal); R00.2 Palpitations; Z13.220 Encounter for screening for lipoid disorders

== ENCOUNTER → 2020-11-06 | Outpatient (CLI) | payer BC ==
[2020-11-06 15:33] LABS: BASO # 0.1 10^3/uL (0.0-0.2); BASO % 0.9 % (0.0-1.0); EOS # 0.2 10^3/uL (0.0-0.5); EOS % 2.6 % (0.0-3.0); HEMATOCRIT 35.4 % (36.0-47.0); HEMOGLOBIN 11.5 g/dl (12.0-15.5); LYMPH # 1.4 10^3/uL (1.5-5.0); LYMPH % 20.1 % (24.0-44.0); MEAN CORPUSCULAR HEMOGLOBIN 29.6 pg (27.0-33.0); MEAN CORPUSCULAR HGB CONC 32.5 g/dl (32.0-36.5); MONO # 0.4 10^3/uL (0.0-0.8); MONO % 5.6 % (2.0-8.0); NEUTROPHILS # 4.9 10^3/uL (1.5-8.5); NEUTROPHILS % 70.7 % (36.0-66.0); PLATELET COUNT, AUTOMATED 322 10^3/uL (150-450); RED BLOOD COUNT 3.89 10^6/uL (4.00-5.40)
[2020-11-06 16:08] LABS: ALBUMIN 3.3 GM/DL (3.2-5.2); ALT/SGPT 15 U/L (12-78); BILIRUBIN,TOTAL 0.3 MG/DL (0.2-1.0); BLOOD UREA NITROGEN 12 MG/DL (7-18); CALCIUM LEVEL 9.2 MG/DL (8.8-10.2); CARBON DIOXIDE LEVEL 28 MEQ/L (21-32); CHLORIDE LEVEL 107 MEQ/L (98-107); CHOLESTEROL LEVEL 214 MG/DL (<200); CHOLESTEROL RISK RATIO 4.037 (<5); CREATININE FOR GFR 0.95 MG/DL (0.55-1.30); FREE T4 1.13 NG/DL (0.76-1.46); GLOMERULAR FILTRATION RATE > 60.0 (>45); GLUCOSE, FASTING 104 MG/DL (70-100); HDL CHOLESTEROL 53 MG/DL (>40); LDL CHOLESTEROL 145 MG/DL (<100); NON-HDL-C 161 MG/DL; POTASSIUM SERUM 3.9 MEQ/L (3.5-5.1); SODIUM LEVEL 143 MEQ/L (136-145); TOTAL PROTEIN 8.3 GM/DL (6.4-8.2); TRIGLYCERIDES LEVEL 79 MG/DL (<150)
== END ==
LOC: M PLALAB 12:58
PROVIDERS: ATTEND Family Medicine
DX: Z13.29 Encounter for screening for other suspected endocrine disorder (principal); Z13.220 Encounter for screening for lipoid disorders

== ENCOUNTER → 2020-11-13 | Outpatient (CLI) | payer BC | LOC: M LABSMTC 09:30 | PROVIDERS: ATTEND Anesthesiology | DX: Z01.812 Encounter for preprocedural laboratory examination (principal); Z20.822 Contact with and (suspected) exposure to COVID-19 ==

== ENCOUNTER 2020-11-18 10:57 | Day surgery (SDC) | payer BC ==
[~2020-11-18] VITALS: Ht 157.5 cm; Wt 71.1 kg
[~2020-11-18 10:57] MED LIST changes: +EMLA CREAM 5GM TUBE (LIDOCAINE/PRILOCAINE) TOP PRN; +LIDOCAINE 1% MDV 20ML VIAL SQ PRN; +LR 1,000 ML IV ONE; +VANCOMYCIN HCL 1,000 MG, VIAL MATE ADAPTER 1 EACH in NS 250 ML IV ONE
[2020-11-18] MEDS ORDERED: ISOVUE-300 61% 50ML VIAL As Ordered ONE (13:00)
[2020-11-18] MEDS ORDERED: LIDOCAINE 1% SDV 30ML VIAL As Ordered ONE (13:00)
[2020-11-18] MEDS ORDERED: AMIODARONE 150MG/3ML INJ (J0282) As Ordered ONE (13:00)
[2020-11-18] MEDS ORDERED: propofoL 200 MG/20 ML VIAL As Ordered ONE (13:36)
[2020-11-18] MEDS ORDERED: fentaNYL 100 MCG/2 ML INJECTION (J3010) As Ordered ONE (13:36)
[2020-11-18] MEDS ORDERED: MIDAZOLAM INJ 2MG/2ML VIAL (J2250 PER 1MG) As Ordered ONE (13:36)
[2020-11-18] MEDS ORDERED: LIDOCAINE 2% 100MG/5ML SDV (FOR ANES.) As Ordered ONE (13:36)
[2020-11-18] MEDS ORDERED: ePHEDrine SULFATE 25 MG/5 ML(5MG/ML) SYRINGE As Ordered ONE (14:08)
[2020-11-18] MEDS ORDERED: PHENYLephrine 500MCG 5ML (100MCG/ML) SYRINGE As Ordered ONE (14:08)
[2020-11-18] MEDS ORDERED: ONDANSETRON 4MG/2ML VIAL As Ordered ONE (14:14)
[2020-11-18] MEDS ORDERED: ONDANSETRON 4MG/2ML VIAL IV ONE (15:30)
[2020-11-18 16:37] VITALS: BP 138/63
--- NOTE | 2020-11-18 16:41 | RO ---
OPERATIVE NOTE DATE OF OPERATION: 11/18/2020 PREOPERATIVE DIAGNOSES: 1. Pacemaker battery depletion. 2. Complete heart block. POSTOPERATIVE DIAGNOSES: 1. Pacemaker battery depletion. 2. Complete heart block. TITLE OF PROCEDURES: 1. Explantation of depleted dual-chamber pulse generator. 2. Testing of old atrial and ventricular pacing leads. 3. Implantation of new dual-chamber pulse generator. IMPLANTING MARKETING COMPLIANCE MANAGER: Zurdo Rajput M.D. SPECIMEN PROCESSOR: ANESTHESIOLOGIST: Dr. Ibarra ANESTHESIA: Monitored local anesthesia. 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 Her pacemaker was implanted from the right axillary vein May 26, 2011 ([employer], model #2210). She has been monitored on a regular basis through my cardiology practice and recently her device was found to be at its elective replacement indicator. At this point she has been quite active, exercising for 60 minutes three times a week and twice a day on weekends without cardiovascular complaint. The patient is completely pacemaker dependent and was given sedation with anesthesiology because of anxiety. Pleasant, late middle aged woman, lying comfortably. Heart rate 88 beats per minute and regular, blood pressure 122/68 sitting, respiratory rate 16, O2 saturation 98% on room air. BMI 27.5. No pallor or cyanosis. Trachea midline. Neck veins were 3 cm above the sternal angle. Normal appearing chest configuration and chest expansion with well healed pacemaker incision right upper chest. S1 normal. S2 paradoxically split because of right ventricular pacing. No audible gallop but has a blowing systolic murmur along the left sternal border and apex. Normal carotid upstrokes and volume. No bruits. Soft abdomen. +/- dependent edema. Normal peripheral pulses. EKG November 06, 2020 showed sinus rhythm with rate of 88 beats per minute. Her pacemaker was appropriately sensing her atrial activity and tracking it with consistent ventricular pacing. Ventricular paced complexes of left axis and left bundle branch block configuration and keeping with RV apical stimulation. Complete blood count was normal. Hemoglobin only slightly low at 11.2. Platelet count 300,000. White blood cell count 6.1 thousand. Electrolytes were normal. BUN 14, creatinine 0.69. Random glucose 113. Ultrasensitive TSH was normal at 1.17. Iron stores were also normal. DESCRIPTION OF PROCEDURE: Following informed consent, with the patient in the fasting state, she was given Vancomycin 1 mg IV infusion over one hour. She was then taken to the operating theater. Numerous skin electrodes were applied to facilitate continuous electrocardiographic monitoring. Self-adhesive cardioverting/defibrillating/pacing pads were applied in anteroposterior configuration as the patient was completely pacemaker dependent. These pads were connected to bedside cardioverter defibrillator/noninvasive pacer. The right subclavian region was prepped and draped in the usual fashion. The skin over her old incision was infiltrated with 1% Xylocaine and a 5 cm linear incision was made over the same site. Careful dissection was then carried down to the level of the pectoralis fascia and the old pacemaker was then explanted ([employer], model #2210, serial #[id number], implanted May 26, 2011). The old pacing leads were then disconnected and tested individually. The ventricular lead ([employer], model #2088TC/52, serial #[id number]) measurements were focal and stimulation threshold 1.0V/0.4 ms/impedance 550 ohms. There was no spontaneous ventricular activity. The atrial lead ([employer], model #2088TC/46, serial #[id number]). Measurements were focal and stimulation threshold 0.625V/0.4 ms/impedance 280 ohms. The P wave amplitude measured 2.8 mV. These leads were secured in position. They were then connected to a dual-chamber pulse generator ([employer], model # MZ3510, serial #[id number]) and appropriate DDD pacing was documented. The old pacer pocket was thoroughly irrigated with saline solution. The new pulse generator was placed in the old pocket. The subcutaneous tissues were approximated using a running chromic suture and the skin was closed using judi. A dry dressing was applied and the patient was returned to the recovery room in good condition. ESTIMATED BLOOD LOSS: Less than 5 mL. COMPLICATIONS: No apparent complications. Once she is alert and ambulatory she will be able to be discharged home. She can resume her customary modest salt intake restricted diet. Her activity can be as tolerated with light activity of her right arm until her judi are removed in our office November 25, 2020 at 9:40 a.m. We have also requested that she avoid getting her incision wet. Her medications will resume: Bisoprolol 5 mg daily, multivitamin one tablet daily, Zyrtec 10 mg daily, Ibuprofen 200 mg PO four times daily PRN. She was encouraged to contact us promptly for any abnormal erythema, swelling or discharge.
== END 2020-11-18 16:45 | disposition home or self-care (01) ==
LOC: M SDC 10:57
PROVIDERS: ATTEND Internal Medicine Cardiovascular Disease
DX: Z45.010 Encounter for checking and testing of cardiac pacemaker pulse generator [battery] (principal); I44.2 Atrioventricular block, complete; Z88.0 Allergy status to penicillin; Z88.8 Allergy status to other drugs, medicaments and biological substances; Z79.899 Other long term (current) drug therapy; Z92.21 Personal history of antineoplastic chemotherapy
CPT/HCPCS: 33228; C1785; J2250; J2370; J2405; J3010; J3370

== ENCOUNTER 2021-06-30 12:48 | Inpatient (IN) | payer BC ==
[~2021-06-30] VITALS: Ht 152.4 cm; Wt 63.7 kg
[2021-06-30] VITALS (11 sets, daily range): BP systolic 92–154; BP diastolic 50–68
[~2021-06-30 12:48] MED LIST changes: -EMLA CREAM 5GM TUBE (LIDOCAINE/PRILOCAINE) TOP PRN; -LIDOCAINE 1% MDV 20ML VIAL SQ PRN; -LR 1,000 ML IV ONE; -VANCOMYCIN HCL 1,000 MG, VIAL MATE ADAPTER 1 EACH in NS 250 ML IV ONE
[2021-06-30] MEDS ORDERED: ALBUTEROL 90 MCG/ACT 8GM HFA INHALER INH ONE (13:40)
[2021-06-30] MEDS ORDERED: NS 500 ML IV ONE (13:40)
[2021-06-30 14:34] LABS: BASO # 0.1 10^3/uL (0.0-0.2); BASO % 0.9 % (0.0-1.0); EOS # 0.1 10^3/uL (0.0-0.5); EOS % 1.3 % (0.0-3.0); HEMATOCRIT 37.9 % (36.0-47.0); HEMOGLOBIN 12.2 g/dl (12.0-15.5); LYMPH # 0.8 10^3/uL (1.5-5.0); LYMPH % 11.1 % (24.0-44.0); MEAN CORPUSCULAR HEMOGLOBIN 30.1 pg (27.0-33.0); MEAN CORPUSCULAR HGB CONC 32.2 g/dl (32.0-36.5); MEAN CORPUSCULAR VOLUME 93.6 fl (80.0-96.0); MONO # 0.6 10^3/uL (0.0-0.8); MONO % 7.9 % (2.0-8.0); NEUTROPHILS # 5.9 10^3/uL (1.5-8.5); NEUTROPHILS % 78.1 % (36.0-66.0); PLATELET COUNT, AUTOMATED 260 10^3/uL (150-450); RED BLOOD COUNT 4.05 10^6/uL (4.00-5.40); WHITE BLOOD COUNT 7.6 10^3/uL (4.0-10.0)
[2021-06-30] MEDS ORDERED: ONDANSETRON 4MG/2ML VIAL IV ONE (14:45)
[2021-06-30 14:51] LABS: INR 1.05; PROTHROMBIN TIME 14.1 SECONDS (12.7-14.5)
[2021-06-30 14:53] LABS: D-DIMER QUANT 2528.13 ng/ml (<500)
[2021-06-30 15:03] LABS: CK-MB VALUE MASS 2.3 NG/ML (<3.6)
[2021-06-30 15:11] LABS: ALBUMIN 2.9 GM/DL (3.2-5.2); BILIRUBIN,DIRECT 0.2 MG/DL (0.0-0.2); BILIRUBIN,TOTAL 0.5 MG/DL (0.2-1.0); THYROID STIMULATING HORMONE 2.82 uIU/ML (0.358-3.740); THYROXINE (T4) 9.2 UG/DL (4.5-12.0); TOTAL PROTEIN 6.7 GM/DL (6.4-8.2)
[2021-06-30] MEDS ORDERED: ISOVUE-370 76% 100ML VIAL As Ordered ONE (15:21)
[2021-06-30 16:24] LABS: MB/CK RELATIVE INDEX 1.53 (< OR =4)
[2021-06-30] MEDS ORDERED: MIDAZOLAM INJ 2MG/2ML VIAL (J2250 PER 1MG) As Ordered ONE ×2 (17:27→19:05)
[2021-06-30] MEDS ORDERED: LIDOCAINE 1% MDV 20ML VIAL As Ordered ONE ×2 (17:27→17:28)
[2021-06-30] MEDS ORDERED: flumazeniL 0.5 MG/5 ML VIAL As Ordered ONE (17:28)
[2021-06-30] MEDS ORDERED: NS 1,000 ML IV SCH (18:00)
[2021-06-30] MEDS ORDERED: VANCOMYCIN HCL 900 MG in IV FLUID PLACE HOLDER 1 EA IV SCH (18:05)
[2021-06-30] MEDS ORDERED: fentaNYL 100 MCG/2 ML INJECTION As Ordered ONE ×2 (18:19→20:34)
[2021-06-30] MEDS ORDERED: ETOMIDATE INJ 20MG/10ML VIAL As Ordered ONE (18:20)
[2021-06-30] MEDS ORDERED: ROCURONIUM BROMIDE 50 MG/5 ML VIAL As Ordered ONE ×2 (18:21→20:19)
[2021-06-30] MEDS ORDERED: propofoL 200 MG/20 ML VIAL As Ordered ONE (18:21)
[2021-06-30] MEDS ORDERED: dexameTHASONE 4 MG/ML 1ML VIAL (J1100 PER 1MG) As Ordered ONE (18:22)
[2021-06-30] MEDS ORDERED: ONDANSETRON 4MG/2ML VIAL As Ordered ONE (18:22)
[2021-06-30] MEDS ORDERED: PHENYLEPHRINE 10MG/ML 1ML VIAL (J2370 PER 1) As Ordered ONE (18:24)
[2021-06-30 18:31] LABS: ABG BASE EXCESS -1.8 (-2.0-2.0); ABG HCO3 22.3 MEQ/L (22.0-26.0); ABG PARTIAL PRESSURE CO2 35.5 mmHg (35.0-45.0); ABG TOTAL CO2 23.3 MEQ/L (23.0-31.0); ABG pH (ARTERIAL) 7.415 UNITS (7.350-7.450)
[2021-06-30] MEDS ORDERED: BUPIVACAINE LIPOSOME/PF 1.3% 20ML VIAL (13.3MG/ML)(EXPAREL) As Ordered ONE (18:38)
[2021-06-30] MEDS ORDERED: BUPIVACAINE HCL 0.5% 30ML VIAL As Ordered ONE (18:38)
[2021-06-30] MEDS: LevoFLOXacin IV 750 MG in IV 1 EA IV SCH (18:47)
[2021-06-30] MEDS ORDERED: VANCOMYCIN HCL 750 MG, VIAL MATE ADAPTER 1 EACH in NS 250 ML IV ONE (19:00)
[2021-06-30] MEDS ORDERED: CETI10TA4 PO (19:44)
[2021-06-30] MEDS ORDERED: CETI-24 PO (19:44)
[2021-06-30] MEDS ORDERED: BISO5TAB14 PO (19:44)
[2021-06-30] MEDS ORDERED: MED NOTE (19:46)
[2021-06-30] MEDS ORDERED: HOME MED LIST COMPLETE! XX SCH (19:50)
[2021-06-30] MEDS ORDERED: VANCOMYCIN HCL 500 MG in D5W MINI-BAG PLUS 100 ML IV ONE (20:00)
[2021-06-30] MEDS ORDERED: VANCOMYCIN 500MG/10ML VIAL As Ordered ONE (20:21)
[2021-06-30] MEDS ORDERED: SUGAMMADEX SODIUM 500 MG/5 ML VIAL (BRIDION) As Ordered ONE (20:55)
[2021-06-30] MEDS ORDERED: HEPARIN SOD (PORCINE) 5000UNITS/ML 1ML VIAL/SYRINGE SC SCH (21:00)
[2021-06-30] MEDS ORDERED: ACETAMINOPHEN 1000MG 100ML IV BTL (OFIRMEV) (J0131 PER 10MG) As Ordered ONE (21:23)
[2021-06-30] MEDS ORDERED: ACETAMINOPHEN TAB 650MG DOSE (2X325MG) PO PRN (21:25)
[2021-06-30] MEDS ORDERED: BISACODYL 10 MG SUPP PR PRN (21:25)
[2021-06-30] MEDS ORDERED: KCL 20MEQ IN D5/NS 1000ML 1,000 ML IV SCH (21:25)
[2021-06-30] MEDS ORDERED: PERCOCET 5MG/325MG TAB PO PRN ×3 (21:25→21:40)
[2021-06-30] MEDS ORDERED: LEVALBUTEROL 1.25 MG/0.5 ML CONCENTRATE NEB NEB PRN (21:25)
[2021-06-30] MEDS ORDERED: METOCLOPRAMIDE INJ 10MG/2ML VIAL (J2765 PER 1) As Ordered ONE (21:30)
[2021-06-30] MEDS ORDERED: INSULIN LISPRO (NovoLOG) PER UNIT SC PRN ×2 (21:40→21:45)
[2021-06-30] MEDS ORDERED: fentaNYL 100 MCG/2 ML INJECTION IV PRN (21:40)
[2021-06-30] MEDS ORDERED: METOCLOPRAMIDE INJ 10MG/2ML VIAL (J2765 PER 1) IV PRN (21:40)
[2021-06-30] MEDS ORDERED: LR 1,000 ML IV SCH (21:40)
[2021-06-30] MEDS ORDERED: ONDANSETRON 4MG/2ML VIAL IV PRN (21:40)
[2021-06-30] MEDS ORDERED: ALBUTEROL SULFATE 2.5 MG/0.5 ML INH NEB SOLN NEB ONE (21:45)
[2021-06-30 21:54] LABS: ABG BASE EXCESS -6.6 (-2.0-2.0); ABG HCO3 19.5 MEQ/L (22.0-26.0); ABG O2 SATURATION 92.8 % (95.0-99.0); ABG PARTIAL PRESSURE CO2 41.4 mmHg (35.0-45.0); ABG PARTIAL PRESSURE O2 74.9 mmHg (75.0-100.0); ABG TOTAL CO2 20.8 MEQ/L (23.0-31.0); ABG pH (ARTERIAL) 7.292 UNITS (7.350-7.450)
[2021-06-30 22:00] LABS: BASO # 0.1 10^3/uL (0.0-0.2); BASO % 0.8 % (0.0-1.0); EOS % 0.4 % (0.0-3.0); HEMATOCRIT 42.7 % (36.0-47.0); HEMOGLOBIN 13.1 g/dl (12.0-15.5); LYMPH # 0.8 10^3/uL (1.5-5.0); LYMPH % 10.9 % (24.0-44.0); MEAN CORPUSCULAR HEMOGLOBIN 30.4 pg (27.0-33.0); MEAN CORPUSCULAR HGB CONC 30.7 g/dl (32.0-36.5); MEAN CORPUSCULAR VOLUME 99.1 fl (80.0-96.0); MONO # 0.6 10^3/uL (0.0-0.8); MONO % 7.7 % (2.0-8.0); NEUTROPHILS # 5.6 10^3/uL (1.5-8.5); NEUTROPHILS % 78.4 % (36.0-66.0); PLATELET COUNT, AUTOMATED 211 10^3/uL (150-450); RED BLOOD COUNT 4.31 10^6/uL (4.00-5.40); WHITE BLOOD COUNT 7.2 10^3/uL (4.0-10.0)
[2021-06-30 22:18] LABS: CALCIUM LEVEL 8.7 MG/DL (8.8-10.2); CREATININE FOR GFR 1.05 MG/DL (0.55-1.30); GLOMERULAR FILTRATION RATE 56.3 (>45); POTASSIUM SERUM 4.3 MEQ/L (3.5-5.1)
[2021-06-30 22:40] LABS: APPEARANCE, BODY FLUID TURBID (CLEAR); SOURCE, BODY FLUID PERICARDIAL; SPEC. GRAVITY BODY FLUIDS 1.027 (NOT ESTABLISHED)
[2021-06-30 22:42] LABS: PH BODY FLUID > 7.800 UNITS (NOT ESTABLISHED); SOURCE, BODY FLUID pH PERICARDIAL
[2021-06-30 23:03] LABS: LDH, BODY FLUID 611 U/L (NOT ESTABLISHED); SOURCE, BODY FLUID ALBUMIN PERICARDIAL; SOURCE, BODY FLUID GLUCOSE PERICARDIAL; SOURCE, BODY FLUID LDH PERICARDIAL; SOURCE, BODY FLUID TOT PROTEIN PERICARDIAL
[2021-06-30] MEDS: KETOROLAC 30 MG/ML 1ML VIAL IV SCH (23:52)
[2021-07-01] VITALS (34 sets, daily range): BP systolic 83–117; BP diastolic 39–58
[2021-07-01] MEDS ORDERED: SODIUM CHLORIDE 0.9% 500 ML IV ONE (01:15)
[2021-07-01] MEDS: LEVALBUTEROL 1.25 MG/0.5 ML CONCENTRATE NEB NEB SCH ×4 (01:49→19:45)
[2021-07-01 05:04] LABS: BASO % 0.3 % (0.0-1.0); HEMATOCRIT 38.1 % (36.0-47.0); HEMOGLOBIN 11.6 g/dl (12.0-15.5); LYMPH # 0.3 10^3/uL (1.5-5.0); LYMPH % 2.9 % (24.0-44.0); MEAN CORPUSCULAR HEMOGLOBIN 29.5 pg (27.0-33.0); MEAN CORPUSCULAR HGB CONC 30.4 g/dl (32.0-36.5); MEAN CORPUSCULAR VOLUME 96.9 fl (80.0-96.0); MONO # 0.4 10^3/uL (0.0-0.8); MONO % 3.1 % (2.0-8.0); NEUTROPHILS # 10.3 10^3/uL (1.5-8.5); NEUTROPHILS % 92.8 % (36.0-66.0); PLATELET COUNT, AUTOMATED 198 10^3/uL (150-450); RED BLOOD COUNT 3.93 10^6/uL (4.00-5.40); WHITE BLOOD COUNT 11.1 10^3/uL (4.0-10.0)
[2021-07-01 05:33] LABS: ALBUMIN 2.1 GM/DL (3.2-5.2); BILIRUBIN,TOTAL 0.4 MG/DL (0.2-1.0); CALCIUM LEVEL 8.2 MG/DL (8.8-10.2); CREATININE FOR GFR 1.11 MG/DL (0.55-1.30); GLOMERULAR FILTRATION RATE 52.8 (>45); MAGNESIUM LEVEL 1.8 MG/DL (1.8-2.4); PHOSPHORUS LEVEL 3.7 MG/DL (2.5-4.9); POTASSIUM SERUM 4.1 MEQ/L (3.5-5.1)
[2021-07-01] MEDS: KETOROLAC 30 MG/ML 1ML VIAL IV SCH (06:19)
[2021-07-01 06:33] LABS: ABG BASE EXCESS -3.6 (-2.0-2.0); ABG HCO3 20.6 MEQ/L (22.0-26.0); ABG O2 SATURATION 96.5 % (95.0-99.0); ABG PARTIAL PRESSURE CO2 34.6 mmHg (35.0-45.0); ABG PARTIAL PRESSURE O2 90.4 mmHg (75.0-100.0); ABG STANDARD HCO3 21.4 MEQ/L (22.0-26.0); ABG TOTAL CO2 21.7 MEQ/L (23.0-31.0); ABG pH (ARTERIAL) 7.393 UNITS (7.350-7.450)
[2021-07-01] MEDS ORDERED: VANCOMYCIN HCL 1,000 MG, VIAL MATE ADAPTER 1 EACH in NS 250 ML IV SCH (07:00)
[2021-07-01] MEDS ORDERED: FUROSEMIDE 40MG/4ML VIAL (J1940) IV SCH (09:00)
[2021-07-01] MEDS: COLCHICINE 0.6 MG TABLET PO SCH (09:00)
[2021-07-01] MEDS: DOCUSATE SODIUM 100MG CAPSULE PO SCH ×2 (09:00→20:25)
[2021-07-01] MEDS ORDERED: PANTOPRAZOLE 40MG TAB (PROTONIX) PO SCH (09:00)
[2021-07-01] MEDS ORDERED: FUROSEMIDE 20MG/2ML VIAL (J1940) IV SCH (09:00)
[2021-07-01] MEDS ORDERED: HEPARIN SOD (PORCINE) 5000UNITS/ML 1ML VIAL/SYRINGE SC SCH (09:00)
[2021-07-01] MEDS: MOM 30ML SUSPENSION UDC PO SCH (09:37)
[2021-07-01] MEDS ORDERED: KETOROLAC 30 MG/ML 1ML VIAL IV PRN (10:20)
[2021-07-01] MEDS ORDERED: MAG SULF 1GM/100ML (MAG RUN) 1 GM in IV 1 EA IV ONE (11:00)
[2021-07-01] MEDS ORDERED: MIDAZOLAM INJ 2MG/2ML VIAL (J2250 PER 1MG) IV STA (11:11)
[2021-07-01] MEDS ORDERED: NS 0.45% 1,000 ML IV SCH (12:40)
[2021-07-01] MEDS ORDERED: FUROSEMIDE 20MG/2ML VIAL (J1940) IV ONE ×4 (12:55→17:30)
[2021-07-01] MEDS: PANTOPRAZOLE 40MG VIAL IV SCH (13:27)
[2021-07-01] MEDS: NS 1,000 ML IV SCH (13:28)
[2021-07-01] MEDS: HEPARIN SOD (PORCINE) 5000UNITS/ML 1ML VIAL/SYRINGE SC SCH ×2 (14:22→22:12)
[2021-07-01] MEDS ORDERED: NS 500 ML IV ONE (17:20)
[2021-07-01] MEDS: MIDODRINE 5 MG TAB PO SCH (18:10)
[2021-07-02] VITALS (26 sets, daily range): BP systolic 76–127; BP diastolic 37–63
[2021-07-02] MEDS: LEVALBUTEROL 1.25 MG/0.5 ML CONCENTRATE NEB NEB SCH ×4 (00:06→19:14)
[2021-07-02] MEDS: NS 1,000 ML IV SCH (02:50)
[2021-07-02 04:59] LABS: BASO % 0.2 % (0.0-1.0); HEMATOCRIT 36.1 % (36.0-47.0); HEMOGLOBIN 11.2 g/dl (12.0-15.5); LYMPH # 0.8 10^3/uL (1.5-5.0); LYMPH % 6.4 % (24.0-44.0); MEAN CORPUSCULAR HEMOGLOBIN 29.9 pg (27.0-33.0); MEAN CORPUSCULAR VOLUME 96.3 fl (80.0-96.0); MONO # 0.9 10^3/uL (0.0-0.8); MONO % 7.3 % (2.0-8.0); NEUTROPHILS # 10.5 10^3/uL (1.5-8.5); NEUTROPHILS % 85.4 % (36.0-66.0); PLATELET COUNT, AUTOMATED 214 10^3/uL (150-450); RED BLOOD COUNT 3.75 10^6/uL (4.00-5.40); WHITE BLOOD COUNT 12.3 10^3/uL (4.0-10.0)
[2021-07-02 05:37] LABS: ALBUMIN 2.2 GM/DL (3.2-5.2); BILIRUBIN,TOTAL 0.3 MG/DL (0.2-1.0); CALCIUM LEVEL 8.3 MG/DL (8.8-10.2); CREATININE FOR GFR 1.38 MG/DL (0.55-1.30); GLOMERULAR FILTRATION RATE 41.1 (>45); PHOSPHORUS LEVEL 3.7 MG/DL (2.5-4.9); POTASSIUM SERUM 4.5 MEQ/L (3.5-5.1); TOTAL PROTEIN 5.4 GM/DL (6.4-8.2)
[2021-07-02] MEDS: HEPARIN SOD (PORCINE) 5000UNITS/ML 1ML VIAL/SYRINGE SC SCH ×2 (06:20→13:55)
[2021-07-02] MEDS: MIDODRINE 5 MG TAB PO SCH ×4 (08:35→23:00)
[2021-07-02] MEDS: COLCHICINE 0.6 MG TABLET PO SCH (08:35)
[2021-07-02] MEDS: PANTOPRAZOLE 40MG VIAL IV SCH (08:35)
[2021-07-02] MEDS: DOCUSATE SODIUM 100MG CAPSULE PO SCH ×2 (09:00→20:13)
[2021-07-02] MEDS: MOM 30ML SUSPENSION UDC PO SCH (09:00)
[2021-07-02] MEDS: FUROSEMIDE 20MG/2ML VIAL (J1940) IV SCH ×2 (10:40→16:51)
[2021-07-02 17:09] LABS: MYCOPLASMA PNEUMONIAE IgG <100 U/mL (0-99); MYCOPLASMA PNEUMONIAE IgM <770 U/mL (0-769)
[2021-07-02] MEDS: LevoFLOXacin IV 750 MG in IV 1 EA IV SCH (18:12)
[2021-07-02 18:22] LABS: ALBUMIN 2.6 GM/DL (3.2-5.2); BILIRUBIN,TOTAL 0.5 MG/DL (0.2-1.0); CALCIUM LEVEL 8.6 MG/DL (8.8-10.2); CREATININE FOR GFR 1.56 MG/DL (0.55-1.30); GLOMERULAR FILTRATION RATE 35.7 (>45); POTASSIUM SERUM 4.1 MEQ/L (3.5-5.1); TOTAL PROTEIN 6.4 GM/DL (6.4-8.2)
[2021-07-02] MEDS: ONDANSETRON 4MG/2ML VIAL IV PRN (23:26)
[2021-07-03] VITALS (21 sets, daily range): BP systolic 84–133; BP diastolic 45–62
[2021-07-03] MEDS ORDERED: ONDANSETRON 4MG/2ML VIAL IV ONE (00:45)
[2021-07-03] MEDS: LEVALBUTEROL 1.25 MG/0.5 ML CONCENTRATE NEB NEB SCH ×4 (01:56→19:35)
[2021-07-03 05:20] LABS: BASO # 0.1 10^3/uL (0.0-0.2); BASO % 0.5 % (0.0-1.0); EOS # 0.1 10^3/uL (0.0-0.5); EOS % 0.6 % (0.0-3.0); HEMATOCRIT 35.5 % (36.0-47.0); HEMOGLOBIN 11.1 g/dl (12.0-15.5); LYMPH # 0.7 10^3/uL (1.5-5.0); MEAN CORPUSCULAR HEMOGLOBIN 29.4 pg (27.0-33.0); MEAN CORPUSCULAR HGB CONC 31.3 g/dl (32.0-36.5); MEAN CORPUSCULAR VOLUME 94.2 fl (80.0-96.0); MONO # 0.8 10^3/uL (0.0-0.8); NEUTROPHILS # 8.4 10^3/uL (1.5-8.5); NEUTROPHILS % 83.1 % (36.0-66.0); PLATELET COUNT, AUTOMATED 225 10^3/uL (150-450); RED BLOOD COUNT 3.77 10^6/uL (4.00-5.40); WHITE BLOOD COUNT 10.1 10^3/uL (4.0-10.0)
[2021-07-03 05:37] LABS: ALBUMIN 2.1 GM/DL (3.2-5.2); BILIRUBIN,TOTAL 0.4 MG/DL (0.2-1.0); CALCIUM LEVEL 8.8 MG/DL (8.8-10.2); CREATININE FOR GFR 1.52 MG/DL (0.55-1.30); GLOMERULAR FILTRATION RATE 36.8 (>45); PHOSPHORUS LEVEL 3.6 MG/DL (2.5-4.9); POTASSIUM SERUM 3.9 MEQ/L (3.5-5.1); TOTAL PROTEIN 6.2 GM/DL (6.4-8.2)
[2021-07-03] MEDS: MIDODRINE 5 MG TAB PO SCH ×4 (06:08→22:03)
[2021-07-03] MEDS: ONDANSETRON 4MG/2ML VIAL IV PRN ×2 (06:17→20:48)
[2021-07-03] MEDS ORDERED: NOREPINEPHRINE BITARTRATE 8 MG in D5W 492 ML IV SCH (06:45)
[2021-07-03] MEDS: DOCUSATE SODIUM 100MG CAPSULE PO SCH ×2 (09:00→20:10)
[2021-07-03] MEDS: PANTOPRAZOLE 40MG VIAL IV SCH (09:38)
[2021-07-03] MEDS: COLCHICINE 0.6 MG TABLET PO SCH (09:38)
[2021-07-03] MEDS ORDERED: NS 1,000 ML IV ONE (12:25)
[2021-07-03] MEDS: cefTRIAXone SOD 1 GM in D5W MINI-BAG PLUS 50 ML IV SCH (12:34)
[2021-07-03] MEDS ORDERED: CETACAINE SPRAY 5GM As Ordered ONE (13:21)
[2021-07-03] MEDS ORDERED: THROMBIN SOLN 5,000 UNITS VIAL As Ordered ONE (13:21)
[2021-07-03] MEDS ORDERED: EPINEPHrine 1MG/10ML SYRINGE 1.5IN As Ordered ONE (13:22)
[2021-07-03] MEDS ORDERED: SCOPOLAMINE 1MG TRANSDERMAL PATCH TOP ONE (13:25)
[2021-07-03] MEDS ORDERED: ONDANSETRON 4MG/2ML VIAL As Ordered ONE (13:53)
[2021-07-03] MEDS ORDERED: MIDAZOLAM INJ 2MG/2ML VIAL (J2250 PER 1MG) As Ordered ONE (13:53)
[2021-07-03] MEDS ORDERED: ROCURONIUM BROMIDE 50 MG/5 ML VIAL As Ordered ONE ×2 (13:53→13:54)
[2021-07-03] MEDS ORDERED: dexameTHASONE 4 MG/ML 1ML VIAL (J1100 PER 1MG) As Ordered ONE (13:53)
[2021-07-03] MEDS ORDERED: LIDOCAINE 2% 100MG/5ML SDV (FOR ANES.) As Ordered ONE (13:53)
[2021-07-03] MEDS ORDERED: VASOPRESSIN INJ 20 UNITS/ML VIAL As Ordered ONE (13:54)
[2021-07-03] MEDS ORDERED: propofoL 200 MG/20 ML VIAL As Ordered ONE (13:54)
[2021-07-03] MEDS ORDERED: PHENYLephrine 500MCG 5ML (100MCG/ML) SYRINGE As Ordered ONE (13:57)
[2021-07-03] MEDS ORDERED: ACETAMINOPHEN 1000MG 100ML IV BTL (OFIRMEV) (J0131 PER 10MG) As Ordered ONE (13:57)
[2021-07-03] MEDS ORDERED: SUGAMMADEX SODIUM 500 MG/5 ML VIAL (BRIDION) As Ordered ONE (14:04)
[2021-07-03] MEDS ORDERED: ALBUTEROL SULFATE 2.5 MG/0.5 ML INH NEB SOLN INH ONE (14:20)
[2021-07-03] MEDS ORDERED: LR 1,000 ML IV SCH (14:20)
[2021-07-03] MEDS ORDERED: ONDANSETRON 4MG/2ML VIAL IV PRN (14:20)
[2021-07-03] MEDS ORDERED: PROMETHAZINE 25MG/ML 1ML VIAL IV PRN (14:20)
[2021-07-03] MEDS ORDERED: METOCLOPRAMIDE INJ 10MG/2ML VIAL (J2765 PER 1) IV PRN (14:20)
[2021-07-03] MEDS ORDERED: oxyCODONE 5MG TAB PO PRN (14:20)
[2021-07-03] MEDS ORDERED: SODIUM CHLORIDE 0.9% 1000ML IV ONE (18:25)
[2021-07-04] VITALS (17 sets, daily range): BP systolic 84–126; BP diastolic 49–72
[2021-07-04] MEDS: LEVALBUTEROL 1.25 MG/0.5 ML CONCENTRATE NEB NEB SCH ×4 (00:51→20:00)
[2021-07-04 06:07] LABS: BASO % 0.1 % (0.0-1.0); HEMATOCRIT 35.9 % (36.0-47.0); HEMOGLOBIN 11.4 g/dl (12.0-15.5); LYMPH # 0.4 10^3/uL (1.5-5.0); LYMPH % 5.9 % (24.0-44.0); MEAN CORPUSCULAR HEMOGLOBIN 29.7 pg (27.0-33.0); MEAN CORPUSCULAR HGB CONC 31.8 g/dl (32.0-36.5); MEAN CORPUSCULAR VOLUME 93.5 fl (80.0-96.0); MONO # 0.3 10^3/uL (0.0-0.8); MONO % 3.8 % (2.0-8.0); NEUTROPHILS # 6.3 10^3/uL (1.5-8.5); NEUTROPHILS % 88.9 % (36.0-66.0); PLATELET COUNT, AUTOMATED 239 10^3/uL (150-450); RED BLOOD COUNT 3.84 10^6/uL (4.00-5.40); WHITE BLOOD COUNT 7.1 10^3/uL (4.0-10.0)
[2021-07-04 06:17] LABS: ALBUMIN 2.2 GM/DL (3.2-5.2); BILIRUBIN,TOTAL 0.4 MG/DL (0.2-1.0); CALCIUM LEVEL 9.1 MG/DL (8.8-10.2); CREATININE FOR GFR 1.5 MG/DL (0.55-1.30); GLOMERULAR FILTRATION RATE 37.3 (>45); MAGNESIUM LEVEL 2.1 MG/DL (1.8-2.4); PHOSPHORUS LEVEL 4.3 MG/DL (2.5-4.9); POTASSIUM SERUM 4.4 MEQ/L (3.5-5.1); TOTAL PROTEIN 6.4 GM/DL (6.4-8.2)
[2021-07-04] MEDS: HEPARIN SOD (PORCINE) 5000UNITS/ML 1ML VIAL/SYRINGE SQ SCH ×3 (06:21→21:39)
[2021-07-04] MEDS: MIDODRINE 5 MG TAB PO SCH (06:21)
[2021-07-04] MEDS: DOCUSATE SODIUM 100MG CAPSULE PO SCH ×2 (08:38→21:00)
[2021-07-04] MEDS: PANTOPRAZOLE 40MG VIAL IV SCH (09:03)
[2021-07-04] MEDS: cefTRIAXone SOD 1 GM in D5W MINI-BAG PLUS 50 ML IV SCH (13:39)
[2021-07-04] MEDS: ONDANSETRON 4MG/2ML VIAL IV PRN (15:27)
[2021-07-04] MEDS ORDERED: METOCLOPRAMIDE INJ 10MG/2ML VIAL (J2765 PER 1) IV ONE (21:55)
[2021-07-05 00:20] VITALS: BP 127/59
[2021-07-05] MEDS: LEVALBUTEROL 1.25 MG/0.5 ML CONCENTRATE NEB NEB SCH ×4 (01:18→20:00)
[2021-07-05 04:25] VITALS: BP 126/59
[2021-07-05] MEDS: HEPARIN SOD (PORCINE) 5000UNITS/ML 1ML VIAL/SYRINGE SQ SCH ×3 (05:44→21:23)
[2021-07-05 06:37] LABS: CREATININE FOR GFR 1.33 MG/DL (0.55-1.30); GLOMERULAR FILTRATION RATE 42.9 (>45); POTASSIUM SERUM 3.7 MEQ/L (3.5-5.1)
[2021-07-05] MEDS: DOCUSATE SODIUM 100MG CAPSULE PO SCH ×3 (07:50→21:22)
[2021-07-05] MEDS: PANTOPRAZOLE 40MG VIAL IV SCH (07:58)
[2021-07-05 08:18] VITALS: BP 121/58
[2021-07-05] MEDS: cefTRIAXone SOD 1 GM in D5W MINI-BAG PLUS 50 ML IV SCH (12:04)
[2021-07-05] MEDS: NYSTATIN 500,000 U/5 ML SUSP UDC SS SCH ×3 (13:54→21:22)
[2021-07-05 16:01] VITALS: BP 123/56
[2021-07-05 20:00] VITALS: BP 125/59
[2021-07-05] MEDS: CETIRIZINE (ZyrTEC) 10 MG TAB PO SCH ×2 (21:00→21:22)
[2021-07-06] VITALS: BP 113/57
[2021-07-06] MEDS: LEVALBUTEROL 1.25 MG/0.5 ML CONCENTRATE NEB NEB SCH ×4 (02:00→18:32)
[2021-07-06 04:00] VITALS: BP 124/59
[2021-07-06] MEDS: HEPARIN SOD (PORCINE) 5000UNITS/ML 1ML VIAL/SYRINGE SQ SCH ×3 (05:49→22:02)
[2021-07-06 05:53] LABS: CALCIUM LEVEL 8.7 MG/DL (8.8-10.2); CREATININE FOR GFR 1.16 MG/DL (0.55-1.30); GLOMERULAR FILTRATION RATE 50.2 (>45); POTASSIUM SERUM 4.3 MEQ/L (3.5-5.1)
[2021-07-06 07:50] VITALS: BP 113/55
[2021-07-06] MEDS: PANTOPRAZOLE 40MG VIAL IV SCH (08:11)
[2021-07-06] MEDS: DOCUSATE SODIUM 100MG CAPSULE PO SCH ×2 (08:11→21:00)
[2021-07-06] MEDS: NYSTATIN 500,000 U/5 ML SUSP UDC SS SCH ×4 (08:12→22:01)
[2021-07-06 11:44] VITALS: BP 118/58
[2021-07-06] MEDS: cefTRIAXone SOD 1 GM in D5W MINI-BAG PLUS 50 ML IV SCH (13:00)
[2021-07-06 16:00] VITALS: BP 120/68
[2021-07-06 20:00] VITALS: BP 110/59
[2021-07-06] MEDS: CETIRIZINE (ZyrTEC) 10 MG TAB PO SCH (21:00)
[2021-07-07] VITALS: BP 105/55
[2021-07-07] MEDS: LEVALBUTEROL 1.25 MG/0.5 ML CONCENTRATE NEB NEB SCH ×3 (01:20→13:01)
[2021-07-07 04:00] VITALS: BP 144/64
[2021-07-07] MEDS: HEPARIN SOD (PORCINE) 5000UNITS/ML 1ML VIAL/SYRINGE SQ SCH ×2 (05:45→14:00)
[2021-07-07] MEDS: DOCUSATE SODIUM 100MG CAPSULE PO SCH (08:32)
[2021-07-07] MEDS: NYSTATIN 500,000 U/5 ML SUSP UDC SS SCH ×3 (08:32→17:00)
[2021-07-07] MEDS: PANTOPRAZOLE 40MG VIAL IV SCH (08:32)
[2021-07-07 10:00] LABS: HEMATOCRIT 39.2 % (36.0-47.0); HEMOGLOBIN 12.4 g/dl (12.0-15.5); MEAN CORPUSCULAR HEMOGLOBIN 30.2 pg (27.0-33.0); MEAN CORPUSCULAR HGB CONC 31.6 g/dl (32.0-36.5); MEAN CORPUSCULAR VOLUME 95.4 fl (80.0-96.0); PLATELET COUNT, AUTOMATED 240 10^3/uL (150-450); RED BLOOD COUNT 4.11 10^6/uL (4.00-5.40); WHITE BLOOD COUNT 9.1 10^3/uL (4.0-10.0)
[2021-07-07 10:32] LABS: ALBUMIN 2.7 GM/DL (3.2-5.2); BILIRUBIN,TOTAL 0.6 MG/DL (0.2-1.0); CALCIUM LEVEL 9.2 MG/DL (8.8-10.2); CREATININE FOR GFR 1.2 MG/DL (0.55-1.30); GLOMERULAR FILTRATION RATE 48.3 (>45); POTASSIUM SERUM 3.5 MEQ/L (3.5-5.1); TOTAL PROTEIN 6.7 GM/DL (6.4-8.2)
[2021-07-07 12:00] VITALS: BP 117/55
[2021-07-07] MEDS: cefTRIAXone SOD 1 GM in D5W MINI-BAG PLUS 50 ML IV SCH (13:00)
[2021-07-07 15:09] LABS: CHLAMYDIA PNEUMONIAE IgG <1:16 (Neg:<1:16); CHLAMYDIA PNEUMONIAE IgM <1:10 (Neg:<1:10)
[2021-07-07] MEDS ORDERED: CETI-24 PO (15:36)
[2021-07-07] MEDS ORDERED: PROAAER10 INH (15:36)
[2021-07-07] MEDS ORDERED: BISA10SU PR (15:36)
[2021-07-07] MEDS ORDERED: PERCOCET PO (15:36)
[2021-07-07] MEDS ORDERED: ACET1TAB55 PO (15:36)
[2021-07-07] MEDS ORDERED: PANT40TA29 PO (15:36)
[2021-07-07] MEDS ORDERED: COLA100C5 PO (15:36)
[2021-07-07] MEDS ORDERED: SENN-80 PO (15:39)
[2021-07-07 16:00] VITALS: BP 114/54
[2021-07-07] MEDS ORDERED: COLC0.6T47 PO (21:23)
== END 2021-07-07 18:37 | disposition home health service (06) | DRG 133 ==
LOC: M ED 12:48 → M ED INP 17:09 → M ICU 17:28 → M PCU 07-04 16:34
PROVIDERS: ADMIT Internal Medicine; ATTEND Internal Medicine
PROC: 0W9B30Z Drainage of Left Pleural Cavity with Drainage Device, Percutaneous Approach (ICD-10-PCS; 2021-06-30)
PROC: 0BBF8ZX Excision of Right Lower Lung Lobe, Via Natural or Artificial Opening Endoscopic, Diagnostic (ICD-10-PCS; 2021-07-03)
PROC: 0BBG8ZX Excision of Left Upper Lung Lobe, Via Natural or Artificial Opening Endoscopic, Diagnostic (ICD-10-PCS; principal; 2021-07-03 13:15)
DX: J96.01 Acute respiratory failure with hypoxia (principal); I31.4 Cardiac tamponade; I44.2 Atrioventricular block, complete; J18.9 Pneumonia, unspecified organism; N17.9 Acute kidney failure, unspecified; J91.0 Malignant pleural effusion; C79.51 Secondary malignant neoplasm of bone; E46 Unspecified protein-calorie malnutrition; C85.90 Non-Hodgkin lymphoma, unspecified, unspecified site; I27.20 Pulmonary hypertension, unspecified; C50.911 Malignant neoplasm of unspecified site of right female breast; Z92.21 Personal history of antineoplastic chemotherapy; Z95.0 Presence of cardiac pacemaker; F41.9 Anxiety disorder, unspecified; Z79.899 Other long term (current) drug therapy; Z88.0 Allergy status to penicillin; Z88.1 Allergy status to other antibiotic agents; Z88.8 Allergy status to other drugs, medicaments and biological substances; Z20.822 Contact with and (suspected) exposure to COVID-19

== ENCOUNTER 2021-07-13 11:40 | Inpatient (IN) | payer BC ==
[~2021-07-13] VITALS: Ht 154.9 cm; Wt 59.0 kg
[~2021-07-13 11:40] MED LIST changes: +ACET1TAB55 PO; +BISA10SU PR; +BISO5TAB14 PO; +CETI-24 PO; +CETI10TA4 PO; +COLA100C5 PO; +COLC0.6T47 PO; +MED NOTE; +PANT40TA29 PO; +PERCOCET PO; +PROAAER10 INH; +SENN-80 PO
[2021-07-13 13:12] LABS: BASO # 0.1 10^3/uL (0.0-0.2); BASO % 0.6 % (0.0-1.0); EOS # 0.1 10^3/uL (0.0-0.5); EOS % 1.4 % (0.0-3.0); HEMOGLOBIN 12.2 g/dl (12.0-15.5); LYMPH # 0.7 10^3/uL (1.5-5.0); LYMPH % 8.2 % (24.0-44.0); MEAN CORPUSCULAR HGB CONC 32.1 g/dl (32.0-36.5); MEAN CORPUSCULAR VOLUME 93.6 fl (80.0-96.0); MONO # 0.4 10^3/uL (0.0-0.8); MONO % 4.9 % (2.0-8.0); NEUTROPHILS # 7.3 10^3/uL (1.5-8.5); NEUTROPHILS % 83.6 % (36.0-66.0); PLATELET COUNT, AUTOMATED 260 10^3/uL (150-450); RED BLOOD COUNT 4.06 10^6/uL (4.00-5.40); WHITE BLOOD COUNT 8.8 10^3/uL (4.0-10.0)
[2021-07-13 13:24] LABS: INR 1.08; PARTIAL THROMBOPLASTIN TIME 30.9 SECONDS (25.9-37.0); PROTHROMBIN TIME 14.4 SECONDS (12.7-14.5)
[2021-07-13 13:54] LABS: ALBUMIN 2.6 GM/DL (3.2-5.2); ALT/SGPT 25 U/L (12-78); BILIRUBIN,DIRECT 0.1 MG/DL (0.0-0.2); BILIRUBIN,TOTAL 0.8 MG/DL (0.2-1.0); BLOOD UREA NITROGEN 13 MG/DL (7-18); CALCIUM LEVEL 8.4 MG/DL (8.8-10.2); CARBON DIOXIDE LEVEL 27 MEQ/L (21-32); CHLORIDE LEVEL 106 MEQ/L (98-107); CREATININE FOR GFR 0.86 MG/DL (0.55-1.30); FREE T4 1.18 NG/DL (0.76-1.46); GLOMERULAR FILTRATION RATE > 60.0 (>45); GLUCOSE, FASTING 92 MG/DL (70-100); LIPASE 179 U/L (73-393); POTASSIUM SERUM 4.1 MEQ/L (3.5-5.1); SODIUM LEVEL 140 MEQ/L (136-145); TOTAL PROTEIN 6.2 GM/DL (6.4-8.2)
[2021-07-13 13:56] LABS: CK-MB VALUE MASS 2.9 NG/ML (<3.6); MB/CK RELATIVE INDEX 2.23 (< OR =4)
[2021-07-13] MEDS ORDERED: FUROSEMIDE 40MG/4ML VIAL (J1940) IV ONE (14:00)
[2021-07-13] MEDS ORDERED: bisoproloL fumarate 5 MG TAB PO ONE (14:15)
[2021-07-13 14:23] LABS: NT-PRO BNP 8244 PG/ML (<125)
[2021-07-13 17:08] LABS: TOTAL 25(OH) VITAMIN D 11.9 NG/ML (30.0-100.0)
[2021-07-13] MEDS ORDERED: VENTAER INH (18:26)
[2021-07-13] MEDS ORDERED: BISO5TAB14 PO (18:26)
[2021-07-13] MEDS ORDERED: HOME MED LIST COMPLETE! XX SCH (18:30)
[2021-07-13 19:04] VITALS: BP 119/57
[2021-07-13] MEDS ORDERED: ENOXAPARIN 40MG/0.4ML SYRINGE (J1650 PER 10MG) SC SCH (21:00)
[2021-07-13 21:35] VITALS: BP 113/58
[2021-07-13 23:45] VITALS: BP 108/58
[2021-07-14 04:35] VITALS: BP 106/58
[2021-07-14 06:56] LABS: HEMATOCRIT 34.9 % (36.0-47.0); HEMOGLOBIN 11.4 g/dl (12.0-15.5); MEAN CORPUSCULAR HEMOGLOBIN 30.5 pg (27.0-33.0); MEAN CORPUSCULAR HGB CONC 32.7 g/dl (32.0-36.5); MEAN CORPUSCULAR VOLUME 93.3 fl (80.0-96.0); PLATELET COUNT, AUTOMATED 262 10^3/uL (150-450); RED BLOOD COUNT 3.74 10^6/uL (4.00-5.40); WHITE BLOOD COUNT 8.5 10^3/uL (4.0-10.0)
[2021-07-14 07:22] LABS: CALCIUM LEVEL 8.3 MG/DL (8.8-10.2); CREATININE FOR GFR 1.11 MG/DL (0.55-1.30); GLOMERULAR FILTRATION RATE 52.8 (>45); POTASSIUM SERUM 3.1 MEQ/L (3.5-5.1)
[2021-07-14] MEDS ORDERED: ALBUTEROL 90 MCG/ACT 8GM HFA INHALER INH PRN (07:30)
[2021-07-14 07:38] VITALS: BP 91/54
[2021-07-14 07:50] VITALS: BP 104/62
[2021-07-14] MEDS ORDERED: POTASSIUM CHLORIDE 10MEQ SR TABLET PO ONE ×2 (07:55→16:00)
[2021-07-14] MEDS ORDERED: FUROSEMIDE 40MG/4ML VIAL (J1940) IV SCH (09:00)
[2021-07-14] MEDS ORDERED: VITAMIN D 1,000 INTERNATIONAL UNITS TABLET PO SCH (09:00)
[2021-07-14] MEDS ORDERED: bisoproloL fumarate 5 MG TAB PO SCH ×2 (09:00→20:00)
[2021-07-14] MEDS ORDERED: POTASSIUM CHLORIDE 10% LIQ 20 MEQ/15 ML UDC PO ONE ×2 (09:35→12:25)
[2021-07-14] MEDS ORDERED: KCL 10MEQ/100ML SWI (KRUN) 10 MEQ in IV 1 EA IV SCH (11:00)
[2021-07-14] MEDS ORDERED: FURO20TA2 PO ×2 (11:08→12:30)
[2021-07-14] MEDS ORDERED: VITAD1000T PO (11:08)
[2021-07-14] MEDS ORDERED: BISO5TAB14 PO (11:09)
[2021-07-14 12:09] VITALS: BP 104/64
[2021-07-14] MEDS ORDERED: POTA20EL PO (12:38)
[2021-07-14] MEDS ORDERED: BISO10TA14 PO (13:45)
[2021-07-14] MEDS ORDERED: METO25TA PO (15:58)
[2021-07-14] MEDS ORDERED: POTA10CA32 PO (16:23)
[2021-07-14] MEDS ORDERED: PROAAER10 INH (17:41)
== END 2021-07-14 17:57 | disposition home or self-care (01) | DRG 194 ==
LOC: EDBD 11:40 → M ED 11:40 → M ED INP 15:54 → M PCU 21:35
PROVIDERS: ADMIT Internal Medicine; ATTEND Internal Medicine
PROC: B246ZZZ Ultrasonography of Right and Left Heart (ICD-10-PCS; principal; 2021-07-13)
DX: I50.33 Acute on chronic diastolic (congestive) heart failure (principal); I31.4 Cardiac tamponade; I44.2 Atrioventricular block, complete; J91.0 Malignant pleural effusion; C85.90 Non-Hodgkin lymphoma, unspecified, unspecified site; I27.20 Pulmonary hypertension, unspecified; C79.51 Secondary malignant neoplasm of bone; E46 Unspecified protein-calorie malnutrition; C50.911 Malignant neoplasm of unspecified site of right female breast; Z95.0 Presence of cardiac pacemaker; Z92.21 Personal history of antineoplastic chemotherapy; Z79.899 Other long term (current) drug therapy; Z88.0 Allergy status to penicillin; Z88.1 Allergy status to other antibiotic agents; Z88.8 Allergy status to other drugs, medicaments and biological substances; Z20.822 Contact with and (suspected) exposure to COVID-19; F41.9 Anxiety disorder, unspecified

== ENCOUNTER 2021-07-21 10:13 | Emergency (ER) | payer BC ==
[~2021-07-21] VITALS: Ht 154.9 cm; Wt 55.0 kg
[~2021-07-21 10:13] MED LIST changes: +BISO10TA14 PO; +FURO20TA2 PO; +METO25TA PO; +POTA10CA32 PO; +POTA20EL PO; +VENTAER INH; +VITAD1000T PO
[2021-07-21 11:14] LABS: BASO % 0.6 % (0.0-1.0); EOS # 0.1 10^3/uL (0.0-0.5); EOS % 1.6 % (0.0-3.0); HEMATOCRIT 38.8 % (36.0-47.0); HEMOGLOBIN 12.3 g/dl (12.0-15.5); LYMPH # 0.8 10^3/uL (1.5-5.0); LYMPH % 11.5 % (24.0-44.0); MEAN CORPUSCULAR HEMOGLOBIN 30.3 pg (27.0-33.0); MEAN CORPUSCULAR HGB CONC 31.7 g/dl (32.0-36.5); MEAN CORPUSCULAR VOLUME 95.6 fl (80.0-96.0); MONO # 0.5 10^3/uL (0.0-0.8); MONO % 7.3 % (2.0-8.0); NEUTROPHILS # 5.3 10^3/uL (1.5-8.5); PLATELET COUNT, AUTOMATED 272 10^3/uL (150-450); RED BLOOD COUNT 4.06 10^6/uL (4.00-5.40); WHITE BLOOD COUNT 6.8 10^3/uL (4.0-10.0)
[2021-07-21 11:51] LABS: ALBUMIN 2.6 GM/DL (3.2-5.2); BILIRUBIN,DIRECT 0.3 MG/DL (0.0-0.2); BILIRUBIN,TOTAL 0.7 MG/DL (0.2-1.0); CALCIUM LEVEL 8.6 MG/DL (8.8-10.2); CREATININE FOR GFR 1.19 MG/DL (0.55-1.30); GLOMERULAR FILTRATION RATE 48.8 (>45); POTASSIUM SERUM 4.1 MEQ/L (3.5-5.1); TOTAL PROTEIN 6.8 GM/DL (6.4-8.2)
[2021-07-21 13:45] VITALS: BP 108/56
[2021-07-21] MEDS ORDERED: AMBI5TAB PO ×2 (13:47→13:48)
== END 2021-07-21 14:10 | disposition home or self-care (01) ==
LOC: M ED 10:13 → EDBD 10:13 → M ED 14:10
DX: C50.919 Malignant neoplasm of unspecified site of unspecified female breast (principal); F41.9 Anxiety disorder, unspecified; F32.9 Major depressive disorder, single episode, unspecified; Z95.0 Presence of cardiac pacemaker; Z79.899 Other long term (current) drug therapy; Z88.0 Allergy status to penicillin; Z88.8 Allergy status to other drugs, medicaments and biological substances

== ENCOUNTER → 2021-07-31 | Outpatient (CLI) | payer BC, MEDICAID ==
[~2021-07-31] MED LIST changes: +AMBI5TAB PO; +REME15TA2 PO
== END ==
LOC: M WUC 15:53
PROVIDERS: ATTEND Internal Medicine Pulmonary Disease
DX: C50.911 Malignant neoplasm of unspecified site of right female breast (principal); J90 Pleural effusion, not elsewhere classified; R91.8 Other nonspecific abnormal finding of lung field

== ENCOUNTER → 2021-08-04 | Outpatient (CLI) | payer BC, MEDICAID | LOC: M LABSMTC 10:14 | PROVIDERS: ATTEND Anesthesiology | DX: Z01.812 Encounter for preprocedural laboratory examination (principal); Z20.822 Contact with and (suspected) exposure to COVID-19 ==

== ENCOUNTER 2021-08-19 13:08 | Inpatient (IN) | payer BC, MEDICAID, OTHER ==
[~2021-08-19] VITALS: Ht 154.9 cm; Wt 52.7 kg
[~2021-08-19 13:08] MED LIST changes: +CAPE1TAB2 PO; +PROC10TA5 PO
[2021-08-19] MEDS ORDERED: NS 1,000 ML IV SCH (14:50)
[2021-08-19 16:30] LABS: BASO % 1.2 % (0.0-1.0); EOS % 1.2 % (0.0-3.0); HEMATOCRIT 39.4 % (36.0-47.0); HEMOGLOBIN 12.3 g/dl (12.0-15.5); LYMPH # 0.6 10^3/uL (1.5-5.0); LYMPH % 23.8 % (24.0-44.0); MEAN CORPUSCULAR HEMOGLOBIN 30.5 pg (27.0-33.0); MEAN CORPUSCULAR HGB CONC 31.2 g/dl (32.0-36.5); MEAN CORPUSCULAR VOLUME 97.8 fl (80.0-96.0); MONO # 0.6 10^3/uL (0.0-0.8); NEUTROPHILS # 1.2 10^3/uL (1.5-8.5); NEUTROPHILS % 48.8 % (36.0-66.0); PLATELET COUNT, AUTOMATED 239 10^3/uL (150-450); RED BLOOD COUNT 4.03 10^6/uL (4.00-5.40); WHITE BLOOD COUNT 2.4 10^3/uL (4.0-10.0)
[2021-08-19 17:04] LABS: RSV AMPLIFICATION NEGATIVE (NEGATIVE)
[2021-08-19 17:20] LABS: CALCIUM LEVEL 8.7 MG/DL (8.8-10.2); CREATININE FOR GFR 1.19 MG/DL (0.55-1.30); FREE T4 1.02 NG/DL (0.76-1.46); GLOMERULAR FILTRATION RATE 48.8 (>45); MAGNESIUM LEVEL 2.3 MG/DL (1.8-2.4); POTASSIUM SERUM 4.8 MEQ/L (3.5-5.1); THYROID STIMULATING HORMONE 1.21 uIU/ML (0.358-3.740)
[2021-08-19] MEDS ORDERED: ISOVUE-370 76% 100ML VIAL As Ordered ONE (17:35)
[2021-08-19] MEDS ORDERED: ACETAMINOPHEN TAB 650MG DOSE (2X325MG) PO PRN (18:30)
[2021-08-19] MEDS ORDERED: BISO10TA14 PO (19:15)
[2021-08-19] MEDS ORDERED: HOME MED LIST COMPLETE! XX SCH (19:15)
[2021-08-19] MEDS ORDERED: PROAAER10 INH (19:15)
[2021-08-19] MEDS ORDERED: PANTOPRAZOLE 40MG VIAL IV SCH (20:00)
[2021-08-19 20:16] LABS: MAGNESIUM LEVEL 2.4 MG/DL (1.8-2.4); PHOSPHORUS LEVEL 3.1 MG/DL (2.5-4.9)
[2021-08-19 20:29] LABS: CK-MB VALUE MASS 2.5 NG/ML (<3.6); MB/CK RELATIVE INDEX 4.17 (< OR =4)
[2021-08-19] MEDS ORDERED: ALBUTEROL 90 MCG/ACT 8GM HFA INHALER INH PRN (23:35)
[2021-08-19 23:55] LABS: CK-MB VALUE MASS 2.4 NG/ML (<3.6); MB/CK RELATIVE INDEX 4.8 (< OR =4)
[2021-08-20 04:00] VITALS: BP 103/50
[2021-08-20 06:51] LABS: HEMATOCRIT 36.1 % (36.0-47.0); HEMOGLOBIN 11.1 g/dl (12.0-15.5); MEAN CORPUSCULAR HEMOGLOBIN 29.9 pg (27.0-33.0); MEAN CORPUSCULAR HGB CONC 30.7 g/dl (32.0-36.5); MEAN CORPUSCULAR VOLUME 97.3 fl (80.0-96.0); PLATELET COUNT, AUTOMATED 249 10^3/uL (150-450); RED BLOOD COUNT 3.71 10^6/uL (4.00-5.40); WHITE BLOOD COUNT 3.8 10^3/uL (4.0-10.0)
[2021-08-20 07:09] LABS: ALBUMIN 2.4 GM/DL (3.2-5.2); CALCIUM LEVEL 8.7 MG/DL (8.8-10.2); CREATININE FOR GFR 1.19 MG/DL (0.55-1.30); GLOMERULAR FILTRATION RATE 48.8 (>45); MAGNESIUM LEVEL 2.3 MG/DL (1.8-2.4); POTASSIUM SERUM 4.5 MEQ/L (3.5-5.1)
[2021-08-20 07:17] LABS: CK-MB VALUE MASS 2.1 NG/ML (<3.6); MB/CK RELATIVE INDEX 3.75 (< OR =4)
[2021-08-20 08:06] LABS: ATYPICAL LYMPH 3 % (0-5); BASOPHILS 3 % (0-1); EOSINOPHILS 1 % (0-3); LYMPHOCYTES 11 % (16-44); METAMYELOCYTES 1 % (0-0); MONOCYTES 19 % (0-5); MYELOCYTES 2 % (0-0); NEUTROPHILS 43 % (28-66)
[2021-08-20 08:07] LABS: PLATELET ESTIMATE NORMAL (NORMAL)
[2021-08-20 08:08] LABS: OVALOCYTES 1+; TEAR DROP CELLS 1+
[2021-08-20 09:00] VITALS: BP 91/53
[2021-08-20] MEDS ORDERED: bisoproloL fumarate 5 MG TAB PO SCH (09:00)
[2021-08-20] MEDS ORDERED: PANTOPRAZOLE 40MG TAB (PROTONIX) PO SCH (09:00)
[2021-08-20] MEDS ORDERED: ENOXAPARIN 40MG/0.4ML SYRINGE (J1650 PER 10MG) SC SCH (09:00)
[2021-08-20] MEDS ORDERED: FLEET ENEMA PR PRN (11:15)
[2021-08-20] MEDS ORDERED: SCOPOLAMINE 1MG TRANSDERMAL PATCH TOP PRN (11:15)
[2021-08-20] MEDS ORDERED: ONDANSETRON 4MG 2ML VIAL IV PRN (11:15)
[2021-08-20] MEDS ORDERED: MORPHINE 2 MG/ML 1ML VIAL IV PRN (11:15)
[2021-08-20] MEDS: MORPHINE 10MG/0.5ML ORAL CONCENTRATE SOLUTION U/D SL PRN (20:28)
[2021-08-21] MEDS ORDERED: PROCHLORPERAZINE 25 MG SUPP PR PRN (22:05)
[2021-08-21] MEDS ORDERED: fentaNYL 12 MCG/HR PATCH TOP SCH (23:00)
[2021-08-22] MEDS ORDERED: CEPACOL LOZENGE PO PRN (23:40)
[2021-08-22] MEDS ORDERED: CHLORASEPTIC SPRAY MT PRN (23:40)
[2021-08-22] MEDS ORDERED: guaiFENesin/CODEINE SYRUP 5 ML UDC PO PRN (23:40)
[2021-08-23] MEDS ORDERED: LIDOCAINE VISCOUS 2% SOLN 15ML UDC SS PRN (09:35)
[2021-08-23] MEDS: MORPHINE 10MG/0.5ML ORAL CONCENTRATE SOLUTION U/D SL PRN ×2 (15:31→19:05)
[2021-08-24] MEDS ORDERED: fentaNYL 50 MCG/HR PATCH TOP SCH (09:00)
[2021-08-24] MEDS ORDERED: FENTANYL REMOVAL DOCUMENTATION MISC XX SCH (23:00)
[2021-08-26] MEDS: MORPHINE 10MG/0.5ML ORAL CONCENTRATE SOLUTION U/D SL PRN ×4 (00:44→20:15)
[2021-08-26] MEDS: LORazepam 1 MG TAB PO PRN ×3 (15:09→17:46)
[2021-08-27] MEDS: LORazepam 1 MG TAB PO PRN (02:16)
[2021-08-27] MEDS ORDERED: FENTANYL REMOVAL DOCUMENTATION MISC XX SCH (09:00)
== END 2021-08-27 06:10 | disposition expired | DRG 421 ==
LOC: M ED 13:08 → M ED INP 19:01 → ENRESERV 08-20 11:29 → M MSPAV 08-20 11:56
PROVIDERS: ADMIT Internal Medicine; ATTEND Internal Medicine
DX: E46 Unspecified protein-calorie malnutrition (principal); R57.1 Hypovolemic shock; I44.2 Atrioventricular block, complete; J70.0 Acute pulmonary manifestations due to radiation; C85.90 Non-Hodgkin lymphoma, unspecified, unspecified site; C78.2 Secondary malignant neoplasm of pleura; C79.51 Secondary malignant neoplasm of bone; I27.20 Pulmonary hypertension, unspecified; C50.919 Malignant neoplasm of unspecified site of unspecified female breast; F41.9 Anxiety disorder, unspecified; R62.7 Adult failure to thrive; Z68.22 Body mass index [BMI] 22.0-22.9, adult; Z95.0 Presence of cardiac pacemaker; Z92.3 Personal history of irradiation; Z92.21 Personal history of antineoplastic chemotherapy; Z51.5 Encounter for palliative care; Z88.0 Allergy status to penicillin; Z88.8 Allergy status to other drugs, medicaments and biological substances; Z66 Do not resuscitate